=== PATIENT | female | born 1970 | race Caucasian/White ===

== ENCOUNTER 2016-06-02 17:11 | Emergency (ER) | payer OTHER ==
--- NOTE | 2016-06-02 20:17 | UC ---
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---is getting no relief with Tylenol...has had a similar event 3-4 years ago treated with Toradol IM and muscle relaxers - History Of Current Complaint Chief Complaint: UCLowerExtremity Stated Complaint: LEG PAIN Time Seen by Provider: 06/02/16 20:14 Hx Obtained From: Patient Hx Last Menstrual Period: IUD ?: No Mechanism Of Injury: unknown Onset/Duration: Sudden Onset, Lasting Days - 9, Still Present, Worse Since - has not been able to sleep for the past 3 days Timing: Constant Severity Initially: Moderate Severity Currently: Moderate Pain Intensity: 9 Pain Scale Used: 0-10 Numeric Location: Discrete At: - LS spine to right SI Joint down buttock to back of knee Character Of Pain: Aching, Throbbing Aggravating Factor(s): Movement Alleviating Factor(s): Nothing Associated Signs And Symptoms: Positive: Negative Related History: Similar Episode/Dx As - sciatica 3-4 years ago - Allergies/Home Medications Allergies/Adverse Reactions: Allergies Allergy/AdvReac Type Severity Reaction Status Date / Time Azithromycin [From Zithromax] Allergy Severe SEVERE Verified 06/02/16 19:56 ANAPHYLAXIS Latex Allergy ITCHY RASH Verified 06/02/16 19:56 PMH/Surg Hx/FS Hx/Imm Hx Previously Healthy: No Endocrine History Of: Reports: Diabetes - BORDERLINE - NO MEDS Denies: Thyroid Disease Cardiovascular History Of: Denies: Cardiac Disorders, Hypertension, Pacemaker/ICD Respiratory History Of: Reports: Asthma - borderline Denies: COPD GI/ History Of: Reports: Kidney Stones - X 2 LAST ONE 2011 - SHE PASSED Denies: Ulcer Neurological History Of: Reports: Migraine Psychological History Of: Reports: Anxiety - CLAUSTAPHOBIC, Depression Cancer History Of: Denies: Breast Cancer - Surgical History Surgical History: Yes Surgery Procedure, Year, and Place: REPAIR FX LEFT FOOT AUGUST 2012 right knee surgery. 1997 BILATERAL TUBAL LIGATION, [facility] [place]. WISDOM TEETH EXTRACTION, [facility]. 1994 PLACENTA EXTRACTION AFTER CHILDBIRTH, hernia repair[facility]. 2010 HIATAL HERNIA REPAIR, [facility] [place]. 2003 OR 2004 LEFT HEEL SPUR, [facility] [place]. 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 Lives: With Family Alcohol Use: None Substance Use Type: None Smoking Status (MU): Never Smoked Tobacco - Immunization History Most Recent Influenza Vaccination: Fall 2015 Review of Systems Constitutional: Negative Skin: Negative Eyes: Negative ENT: Negative Respiratory: Negative Cardiovascular: Negative Gastrointestinal: Negative Genitourinary: Negative Motor: Negative Neurovascular: Negative Musculoskeletal: Arthralgia - right sciatic and si joint Neurological: Negative Psychological: Negative All Other Systems Reviewed And Are Negative: Yes Physical Exam Triage Information Reviewed: Yes Appearance: Well-Appearing, Pain Distress, Obese Vital Signs: Initial Vital Signs Temp 97 F 06/02/16 19:58 Pulse 80 06/02/16 19:58 Resp 18 06/02/16 19:58 BP 141/85 06/02/16 19:58 Pulse Ox 100 06/02/16 19:58 Vital Signs Reviewed: Yes Eye Exam: Normal Eyes: Positive: Conjunctiva Clear ENT Exam: Normal ENT: Positive: Normal ENT inspection, Hearing grossly normal. Negative: Nasal congestion, Nasal drainage, Trismus, Muffled/hoarse voice Neck exam: Normal Neck: Positive: Supple, Nontender, No Lymphadenopathy Respiratory Exam: Normal Respiratory: Positive: Chest non-tender, Lungs clear, Normal breath sounds, No respiratory distress, No accessory muscle use Cardiovascular Exam: Normal Cardiovascular: Positive: RRR, No Murmur, Pulses Normal, Brisk Capillary Refill Musculoskeletal Exam: Normal Musculoskeletal: Positive: Strength Intact, ROM Intact, No Edema Neurological Exam: Normal Neurological: Positive: Alert, Muscle Tone Normal, Fatigued Psychological Exam: Normal Skin Exam: Normal Re-Evaluation - Re-Evaluation First Eval Change: Improved Hip Injury Course/Dx - Course Course Of Treatment: rest muscle relaxer, low back exercise, follow BP with PCP in the next 1-2 week - Differential Dx/Diagnosis Differential Diagnosis/HQI/PQRI: Sprain, Strain Provider Diagnoses: right sciatic pain Discharge - Discharge Plan Condition: Stable Disposition: HOME Prescriptions: Cyclobenzaprine TAB* [Flexeril TAB*] 10 mg PO TID PRN #15 tab PRN Reason: muscle spasm Patient Education Materials: Sciatica (ED), Acute Low Back Pain (ED), DASH Eating Plan (ED), Hypertension (ED), Lower Back Exercises (ED) Referrals: [facility] PHYSICIAN REFERRAL [Outside] - 1 Week No Primary Care Phys,NOPCP [Primary Care Provider] -
[2016-06-02] MEDS ORDERED: Ketorolac INJ* 60 MG/2 ML VIAL IM ONE (20:24)
[2016-06-02] MEDS ORDERED: Cyclobenzaprine TAB* 10 MG PO ONE (20:56)
[2016-06-02 21:12] VITALS: BP 178/84
== END 2016-06-02 21:07 | disposition home or self-care (01) ==
LOC: UCEAST 17:11
DX: M54.41 Lumbago with sciatica, right side (principal); Z88.1 Allergy status to other antibiotic agents; E66.9 Obesity, unspecified
CPT/HCPCS: 96372; 99212; A9270-GY; G0463; J1885

== ENCOUNTER 2016-09-29 09:21 | Emergency (ER) | payer OTHER ==
[2016-09-29 09:42] VITALS: BP 120/69
--- NOTE | 2016-09-29 10:05 | UC ---
Respiratory Complaint HPI - History of Current Complaint Hx Obtained From: Patient Hx Last Menstrual Period: iud ?: No Onset/Duration: Gradual Onset - has had sinus buffy for 8 days. over past 24h she has experienced dry cough, PND, and green eye drainage, also blowing green nasal drainage, nad today bilat ears very painful Aggravating Factors: Deep Breaths, Recumbent Position Alleviating Factors: Nothing - tried OTC sinus meds w/o relief Associated Signs And Symptoms: Positive: Fever, Nasal Congestion, Sinus Discomfort. Negative: Dizziness <Brooke Reynolds - Last Filed: 09/29/16 10:35> <Bess Hines - Last Filed: 09/29/16 10:57> - History of Current Complaint Chief Complaint: UCRespiratory Stated Complaint: SINUS ISSUE EAR PAIN Time Seen by Provider: 09/29/16 09:45 - Allergies/Home Medications Allergies/Adverse Reactions: Allergies Allergy/AdvReac Type Severity Reaction Status Date / Time Azithromycin [From Zithromax] Allergy Severe SEVERE Verified 06/02/16 19:56 ANAPHYLAXIS Latex Allergy ITCHY RASH Verified 06/02/16 19:56 PMH/Surg Hx/FS Hx/Imm Hx Previously Healthy: Yes - Surgical History Surgical History: Yes Surgery Procedure, Year, and Place: REPAIR FX LEFT FOOT AUGUST 2012 right knee surgery. 1997 BILATERAL TUBAL LIGATION, [facility] [place]. WISDOM TEETH EXTRACTION, [facility]. 1994 PLACENTA EXTRACTION AFTER CHILDBIRTH[facility] [place] 2010 HIATAL HERNIA REPAIR, [facility] [place]. 2003 OR 2004 LEFT HEEL SPUR, [facility] [place]. 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 Lives: With Family Alcohol Use: None Substance Use Type: None Smoking Status (MU): Never Smoked Tobacco - Immunization History Most Recent Influenza Vaccination: Fall 2015 <Brooke Reynolds - Last Filed: 09/29/16 10:35> Review of Systems Constitutional: Chills, Fatigue Skin: Negative Eyes: Other - green d/c ENT: Ear Ache, Sinus Congestion, Sinus Pain/Tenderness Respiratory: Negative, Cough - slight dry Cardiovascular: Negative Musculoskeletal: Negative Neurological: Negative Psychological: Negative All Other Systems Reviewed And Are Negative: Yes <Brooke Reynolds - Last Filed: 09/29/16 10:35> Physical Exam Triage Information Reviewed: Yes Appearance: Well-Appearing, No Pain Distress, Obese Vital Signs: Initial Vital Signs Temp 98.1 F 09/29/16 09:38 Pulse 63 09/29/16 09:38 Resp 16 09/29/16 09:38 BP 120/69 09/29/16 09:38 Pulse Ox 100 09/29/16 09:38 Vital Signs Reviewed: Yes Eyes: Positive: Conjunctiva Inflamed. Negative: Discharge ENT: Positive: Hearing grossly normal, TM dull Dental: Negative: Percussion Tenderness @ Neck: Positive: Supple, Nontender, No Lymphadenopathy Respiratory Exam: Normal Respiratory: Positive: Lungs clear Cardiovascular Exam: Normal Neurological Exam: Normal Psychological Exam: Normal Skin Exam: Normal <Brooke Reynolds - Last Filed: 09/29/16 10:35> Vital Signs: Initial Vital Signs Temp 98.1 F 09/29/16 09:38 Pulse 63 09/29/16 09:38 Resp 16 09/29/16 09:38 BP 120/69 09/29/16 09:38 Pulse Ox 100 09/29/16 09:38 <Bess Hines - Last Filed: 09/29/16 10:57> UC Diagnostic Evaluation - Laboratory O2 Sat by Pulse Oximetry: 100 <Brooke Reynolds - Last Filed: 09/29/16 10:35> Respiratory Course/Dx - Differential Dx/Diagnosis Differential Diagnosis/HQI/PQRI: Lower Resp Infection, Sinusitis, Other - URI Provider Diagnoses: sinusitis <Brooke Reynolds - Last Filed: 09/29/16 10:35> Discharge <Brooke Reynolds - Last Filed: 09/29/16 10:35> <Bess Hines - Last Filed: 09/29/16 10:57> - Discharge Plan Condition: Stable Disposition: HOME Prescriptions: Amoxicillin/Clavulanate TAB* [Augmentin TAB 875*] 875 mg PO BID #20 tab Patient Education Materials: Sinusitis (ED) Referrals: No Primary Care Phys,NOPCP [Primary Care Provider] - Additional Instructions: drink plenty of fluids take antibiotic as prescribed use tylenol over the counter as directed for fever and pain return if symptoms worsen at any time Attestation Statement User Type: Provider - I was available for consult. This patient was seen by the SOL. The patient was not presented to, seen by, or examined by me. -Sabrina <Bess Hines - Last Filed: 09/29/16 10:57>
== END 2016-09-29 10:07 | disposition home or self-care (01) ==
LOC: UCEAST 09:21
DX: J32.9 Chronic sinusitis, unspecified (principal); Z88.1 Allergy status to other antibiotic agents; Z91.040 Latex allergy status; E66.9 Obesity, unspecified
CPT/HCPCS: 99212; G0463

== ENCOUNTER 2016-10-12 19:32 | Emergency (ER) | payer OTHER ==
[2016-10-12] MEDS ORDERED: HYDROmorphone* 1 MG/ML 1 ML SYR IV ONE (20:46)
[2016-10-12] MEDS ORDERED: Ondansetron INJ* 2 MG/ML VIAL IV ONE (20:46)
[2016-10-12] MEDS ORDERED: NS 0.9% 1000 ML* 1,000 ML IV ONE (20:46)
[2016-10-12 21:26] LABS: Hematocrit 41 % (35-47); Hemoglobin 13.5 g/dl (12.0-16.0); Mean Corpuscular HGB Conc 33 g/dl (31-36); Mean Corpuscular Hemoglobin 29 pg (27-31); Mean Corpuscular Volume 89 fL (80-97); Mean Platelet Volume 9 um3 (7.4-10.4); Red Blood Count 4.66 10^6/ul (4.0-5.4); Red Cell Distribution Width 14 % (10.5-15); White Blood Count 11.2 10^3/ul (3.5-10.8)
--- NOTE | 2016-10-12 21:39 | RAD ---
Indication: Right lower quadrant pain. CT of the abdomen and pelvis was performed without oral or IV contrast administration. Coronal and sagittal reconstructed images were obtained. The lung bases demonstrate no pleural fluid, nodules or masses. Heart is of normal size without evidence of pericardial effusion. The liver is normal in size. No focal lesions or intrahepatic ductal dilatation is noted. The common duct is not dilated. The gallbladder demonstrates multiple calcified gallstones without pericholecystic fluid or wall thickening. Pancreas demonstrates no mass or pancreatic ductal dilatation. Spleen is normal in size. No adrenal masses are noted. The kidneys demonstrate no hydronephrosis in either kidney although calculi are noted in both kidneys. These are nonobstructive and measures up to 4 mm in the lower pole collecting system of the right kidney and lower and upper pole pole collecting system of the left kidney. No retroperitoneal lymphadenopathy is noted. Aorta and inferior vena cava are unremarkable. No dilated loops of bowel are noted. The uterus demonstrates intrauterine device in place. No adnexal masses are noted. Beginning bladder is unremarkable. No hernias are noted. The colon is filled with stool. No hernias are noted. IMPRESSION: NO EVIDENCE OF OBSTRUCTIVE UROPATHY IS NOTED. NONOBSTRUCTING CALCULI IS NOTED IN BOTH KIDNEYS. CHOLELITHIASIS WITHOUT EVIDENCE OF BILIARY DUCT DILATATION.
[2016-10-12 21:41] LABS: ALT 27 U/L (7-52); AST 19 U/L (13-39); Albumin 4.1 g/dL (3.2-5.2); Alkaline Phosphatase 56 U/L (34-104); Anion Gap 6 mmol/L (2-11); BUN/Creatinine Ratio 18.6 (8-20); Blood Urea Nitrogen 13 mg/dL (6-24); C Reactive Protein 9.77 mg/L (< 5.00); CO2 Carbon Dioxide 25 mmol/L (22-32); Calcium 9.7 mg/dL (8.6-10.3); Chloride 103 mmol/L (101-111); EGFR African American 115.9 (>60); EGFR Non-African American 90.1 (>60); Globulin 3.3 g/dL (2-4); Glucose 88 mg/dL (70-100); Lipase 43 U/L (11.0-82.0); Potassium 3.9 mmol/L (3.5-5.0); Sodium 134 mmol/L (133-145); Total Protein 7.4 g/dL (6.4-8.9)
[2016-10-12 22:32] LABS: Urine Bilirubin Negative (Negative); Urine Glucose Negative (Negative); Urine Nitrite Negative (Negative)
[2016-10-12] MEDS ORDERED: oxyCODONE/Acetamin 5/325 MG* TAB PO ONE (22:43)
[2016-10-12 23:39] VITALS: BP 122/62
--- NOTE | 2016-10-31 16:48 | ED ---
Helen Grimaldo Salem, scribed for Wilmar Trevino MD on 10/12/16 at 2107 . Abdominal Pain/Female - HPI Summary HPI Summary: Patient is a 46 y/o F who presents to the ED with RLQ abd pain since 0400 this morning. She states that pain was so bad she woke up crying. Pt describes the pain as pinching every 20-30minutes. She reports nausea and dry heaves since onset, but denies changes in BM or diarrhea. She states pain is aggravated with sitting still. Pt has a IUD, but suspects LMP was 10 days ago. - History of Current Complaint Chief Complaint: EDAbdPain Stated Complaint: RIGHT ABD PAIN Time Seen by Provider: 10/12/16 20:32 Hx Obtained From: Patient Hx Last Menstrual Period: iud Onset/Duration: Gradual Onset, Lasting Hours, Still Present Timing: Intermittent Episode Lasting Severity Initially: Moderate Severity Currently: Moderate Pain Intensity: 9 Pain Scale Used: 0-10 Numeric Location: Discrete At: RLQ Radiates: No Character: Other: - "pinching" Aggravating Factor(s): Other: - Sitting still. Alleviating Factor(s): Other: - Movement. Associated Signs and Symptoms: Positive: Nausea. Negative: Diarrhea Allergies/Adverse Reactions: Allergies Allergy/AdvReac Type Severity Reaction Status Date / Time Azithromycin [From Zithromax] Allergy Severe SEVERE Verified 06/02/16 19:56 ANAPHYLAXIS Latex Allergy ITCHY RASH Verified 06/02/16 19:56 PMH/Surg Hx/FS Hx/Imm Hx Endocrine/Hematology History: Reports: Hx Diabetes - BORDERLINE - NO MEDS, Hx Anemia - HX OF FOR LAST 4 YEARS BETTER SINCE IUD INSERTION Denies: Hx Thyroid Disease Cardiovascular History: Denies: Hx Hypertension, Hx Pacemaker/ICD Respiratory History: Reports: Hx Asthma - borderline Denies: Hx Chronic Obstructive Pulmonary Disease (COPD) GI History: Reports: Hx Hiatal Hernia Denies: Hx Ulcer History: Reports: Hx Kidney Stones - X 2 LAST ONE 2011 - SHE PASSED Musculoskeletal History: Reports: Hx Arthritis, Other Musculoskeletal History - BEING TESTED FOR RA - LEVELS 30 Sensory History: Reports: Hx Contacts or Glasses - GLASSES Opthamlomology History: Reports: Hx Contacts or Glasses - GLASSES Neurological History: Reports: Hx Migraine Psychiatric History: Reports: Hx Anxiety - CLAUSTAPHOBIC, Hx Depression Denies: Hx Panic Disorder - Cancer History Hx Chemotherapy: No Hx Radiation Therapy: No - Surgical History Surgery Procedure, Year, and Place: REPAIR FX LEFT FOOT AUGUST 2012 right knee surgery. 1997 BILATERAL TUBAL LIGATION, [facility] [place]. WISDOM TEETH EXTRACTION, [facility]. 1994 PLACENTA EXTRACTION AFTER [facility]ILDBIRTH[facility] [place] 2010 HIATAL HERNIA REPAIR, [facility] [place]. 2003 OR 2004 LEFT HEEL SPUR, [facility] [place]. 2004 RIGHT KNEE ARTHROSCOPY, [facility] Hx Anesthesia Reactions: No - WOULD PREFER SPINAL ANESTHESIA Infectious Disease History: Denies: Hx Clostridium Difficile, Hx Hepatitis, Hx Human Immunodeficiency Virus (HIV), Hx of Known/Suspected MRSA, Hx Shingles, Hx Tuberculosis, Hx Known/ Suspected VRE, Hx Known/Suspected VRSA, History Other Infectious Disease, Traveled Outside the [place] in Last 30 Days - Family History Known Family History: Negative: Hypertension Family History: denies cardio vascular disease in family lineage - Social History Alcohol Use: None Hx Substance Use: No Substance Use Type: Reports: None Hx Tobacco Use: No Smoking Status (MU): Never Smoked Tobacco Review of Systems Constitutional: Negative Positive: Fever Gastrointestinal: Other - No changes in BM. Positive: Abdominal Pain, Nausea, Other - Dry heaves. . Negative: Diarrhea All Other Systems Reviewed And Are Negative: Yes Physical Exam Triage Information Reviewed: Yes Vital Signs On Initial Exam: Initial Vitals Temp Pulse Resp BP Pulse Ox 97.1 F 89 22 178/68 100 10/12/16 19:33 10/12/16 19:33 10/12/16 19:33 10/12/16 19:33 10/12/16 19:33 Vital Signs Reviewed: Yes Appearance: Positive: Well-Appearing, No Pain Distress Skin: Positive: Warm, Skin Color Reflects Adequate Perfusion, Dry Head/Face: Positive: Normal Head/Face Inspection Eyes: Positive: Normal Neck: Positive: Supple, Nontender Respiratory/Lung Sounds: Positive: Clear to Auscultation, Breath Sounds Present Cardiovascular: Positive: RRR Abdomen Description: Positive: Soft, Other: - Tenderness to RLQ. Bowel Sounds: Positive: Present Musculoskeletal: Positive: Normal Neurological: Positive: Normal Psychiatric: Positive: Normal, Affect/Mood Appropriate Diagnostics - Vital Signs Vital Signs Temp Pulse Resp BP Pulse Ox 10/12/16 19:33 97.1 F 89 22 178/68 100 - Laboratory Lab Results: Lab Results 10/12/16 10/12/16 10/12/16 Range/Units 21:10 21:10 22:17 WBC 11.2 H (3.5-10.8) 10^3/ul RBC 4.66 (4.0-5.4) 10^6/ul Hgb 13.5 (12.0-16.0) g/dl Hct 41 (35-47) % MCV 89 (80-97) fL MCH 29 (27-31) pg MCHC 33 (31-36) g/dl RDW 14 (10.5-15) % Plt Count 287 (150-450) 10^3/ul MPV 9 (7.4-10.4) um3 Neut % (Auto) 72.4 (38-83) % Lymph % (Auto) 18.3 L (25-47) % Gilmer % (Auto) 6.5 (1-9) % Eos % (Auto) 1.9 (0-6) % Baso % (Auto) 0.9 (0-2) % Absolute Neuts (auto) 8.1 H (1.5-7.7) 10^3/ul Absolute Lymphs (auto) 2.1 (1.0-4.8) 10^3/ul Absolute Monos (auto) 0.7 (0-0.8) 10^3/ul Absolute Eos (auto) 0.2 (0-0.6) 10^3/ul Absolute Basos (auto) 0.1 (0-0.2) 10^3/ul Absolute Nucleated RBC 0 10^3/ul Nucleated RBC % 0 Sodium 134 (133-145) mmol/L Potassium 3.9 (3.5-5.0) mmol/L Chloride 103 (101-111) mmol/L Carbon Dioxide 25 (22-32) mmol/L Anion Gap 6 (2-11) mmol/L BUN 13 (6-24) mg/dL Creatinine 0.70 (0.51-0.95) mg/dL Est GFR ( Amer) 115.9 (>60) Est GFR (Non-Af Amer) 90.1 (>60) BUN/Creatinine Ratio 18.6 (8-20) Glucose 88 (70-100) mg/dL Calcium 9.7 (8.6-10.3) mg/dL Total Bilirubin 0.50 (0.2-1.0) mg/dL AST 19 (13-39) U/L ALT 27 (7-52) U/L Alkaline Phosphatase 56 (34-104) U/L C-Reactive Protein 9.77 H (< 5.00) mg/L Total Protein 7.4 (6.4-8.9) g/dL Albumin 4.1 (3.2-5.2) g/dL Globulin 3.3 (2-4) g/dL Albumin/Globulin Ratio 1.2 (1-3) Lipase 43 (11.0-82.0) U/L Beta HCG, Quant < 0.60 mIU/mL Urine Color Straw Urine Appearance Clear Urine pH 6.0 (5-9) Ur Specific Odonnell 1.012 (1.010-1.030) Urine Protein Negative (Negative) Urine Ketones Negative (Negative) Urine Blood Negative (Negative) Urine Nitrate Negative (Negative) Urine Bilirubin Negative (Negative) Urine Urobilinogen Negative (Negative) Ur Leukocyte Esterase Negative (Negative) Urine Glucose Negative (Negative) Result Diagrams: 10/12/16 21:10 10/12/16 21:10 Lab Statement: Any lab studies that have been ordered have been reviewed, and results considered in the medical decision making process. - CT ABD/PELVIS CT Interpretation Completed By: Radiologist - IMPRESSION: NO EVIDENCE OF OBSTRUCTIVE UROPATHY IS NOTED. NONOBSTRUCTING CALCULI IS NOTED IN BOTH KIDNEYS. CHOLELITHIASIS WITHOUT EVIDENCE OF BILIARY DUCT DILATATION. Re-Evaluation - Re-Evaluation First Eval Re-Evaluation Time: 22:40 Comment: Reviewed imaging and lab results. Abdominal Pain Fem Course/Dx - Diagnoses Provider Diagnoses: Abdominal pain Discharge - Discharge Plan Condition: Stable Disposition: HOME Patient Education Materials: Abdominal Pain (ED) Referrals: Yasmeen Dowling MD [Primary Care Provider] - Additional Instructions: Please follow up with your primary care provider. Return to the ED if symptoms do not improve. The documentation as recorded by the Helen alva Salem accurately reflects the service I personally performed and the decisions made by , Wilmar Trevino MD.
== END 2016-10-12 23:47 | disposition home or self-care (01) ==
LOC: ED 19:32
DX: R10.31 Right lower quadrant pain (principal); N20.0 Calculus of kidney; Z87.442 Personal history of urinary calculi; K80.20 Calculus of gallbladder without cholecystitis without obstruction; R11.0 Nausea; Z32.02 Encounter for pregnancy test, result negative; R73.03 Prediabetes; G43.909 Migraine, unspecified, not intractable, without status migrainosus; F41.9 Anxiety disorder, unspecified; F32.9 Major depressive disorder, single episode, unspecified; Z88.1 Allergy status to other antibiotic agents; Z91.040 Latex allergy status
CPT/HCPCS: 36415; 74176; 80053; 81003; 83690; 84702; 85025; 86140; 96361; 96374; 96375; 99283; A9270-GY; J1170; J2405

== ENCOUNTER 2016-12-24 14:58 | Emergency (ER) | payer OTHER ==
[2016-12-24 16:16] VITALS: BP 124/77
--- NOTE | 2016-12-24 16:23 | UC ---
HPI Febrile Illness - HPI Summary HPI Summary: 46 YEAR OLD FEMALE PRESENTS WITH FEVER, CHILLS, NAUSEA AND VOMITING X 1 DAY. - History of Current Complaint Chief Complaint: UCGI Time Seen by Provider: 12/24/16 16:20 Hx Obtained From: Patient Hx Last Menstrual Period: now Onset/Duration: Started Hours Ago Timing: Constant Initial Severity: Moderate Current Severity: Moderate Pain Scale Used: 0-10 Numeric - 5 - Allergy/Home Medications Allergies/Adverse Reactions: Allergies Allergy/AdvReac Type Severity Reaction Status Date / Time Azithromycin [From Zithromax] Allergy Severe SEVERE Verified 12/24/16 16:16 ANAPHYLAXIS Latex Allergy ITCHY RASH Verified 12/24/16 16:16 Home Medications: Home Medications FLUoxetine CAP* [Prozac CAP*] 10 mg PO BEDTIME 12/24/16 [History Confirmed 12/24] PMH/Surg Hx/FS Hx/Imm Hx Previously Healthy: Yes Endocrine/Hematology History: Reports: Hx Diabetes - BORDERLINE - NO MEDS, Hx Anemia - HX OF FOR LAST 4 YEARS BETTER SINCE IUD INSERTION Denies: Hx Thyroid Disease Cardiovascular History: Denies: Hx Hypertension, Hx Pacemaker/ICD Respiratory History: Reports: Hx Asthma - borderline Denies: Hx Chronic Obstructive Pulmonary Disease (COPD) GI History: Reports: Hx Hiatal Hernia Denies: Hx Ulcer History: Reports: Hx Kidney Stones - X 2 LAST ONE 2011 - SHE PASSED Musculoskeletal History: Reports: Hx Arthritis, Other Musculoskeletal History - BEING TESTED FOR RA - LEVELS 30 Sensory History: Reports: Hx Contacts or Glasses - GLASSES Opthamlomology History: Reports: Hx Contacts or Glasses - GLASSES Neurological History: Reports: Hx Migraine Psychiatric History: Reports: Hx Anxiety - CLAUSTAPHOBIC, Hx Depression Denies: Hx Panic Disorder - Cancer History Hx Chemotherapy: No Hx Radiation Therapy: No - Surgical History Surgery Procedure, Year, and Place: REPAIR FX LEFT FOOT AUGUST 2012 right knee surgery. 1997 BILATERAL TUBAL LIGATION, [facility] [place]. WISDOM TEETH EXTRACTION, [facility]. 1994 PLACENTA EXTRACTION AFTER [facility]ILDBIRTH, [facility] [place] 2010 HIATAL HERNIA REPAIR, [facility] [place]. 2003 OR 2004 LEFT HEEL SPUR, [facility] [place]. 2004 RIGHT KNEE ARTHROSCOPY, [facility] [place] Hx Anesthesia Reactions: No - WOULD PREFER SPINAL ANESTHESIA Infectious Disease History: No Infectious Disease History: Denies: Hx Clostridium Difficile, Hx Hepatitis, Hx Human Immunodeficiency Virus (HIV), Hx of Known/Suspected MRSA, Hx Shingles, Hx Tuberculosis, Hx Known/ Suspected VRE, Hx Known/Suspected VRSA, History Other Infectious Disease, Traveled Outside the [place] in Last 30 Days - Family History Known Family History: Positive: None - denies cardio vascular disease in family lineage Negative: Hypertension - Social History Alcohol Use: Rare Substance Use Type: Reports: None Smoking Status (MU): Never Smoked Tobacco Review of Systems Constitutional: Negative Skin: Negative Eyes: Negative ENT: Negative Respiratory: Negative Cardiovascular: Negative Gastrointestinal: Vomiting, Diarrhea, Nausea Genitourinary: Negative Motor: Negative Neurovascular: Negative Musculoskeletal: Negative Neurological: Negative Psychological: Negative All Other Systems Reviewed And Are Negative: Yes Physical Exam Triage Information Reviewed: Yes Vital Signs: Initial Vital Signs Temp 36.6 C 12/24/16 16:11 Pulse 73 12/24/16 16:11 Resp 18 12/24/16 16:11 BP 124/77 12/24/16 16:11 Pulse Ox 97 12/24/16 16:11 Eye Exam: Normal ENT Exam: Normal Dental Exam: Normal Neck exam: Normal Neck: Positive: 1 Respiratory Exam: Normal Cardiovascular Exam: Normal Abdominal Exam: Normal Musculoskeletal Exam: Normal Neurological Exam: Normal Psychological Exam: Normal Skin Exam: Normal Course/Dx - Diagnoses Clinic Provider Diagnoses: nausea. vomitting Discharge - Discharge Plan Condition: Stable Disposition: HOME Prescriptions: Loperamide HCl [Imodium A-D] 2 mg PO TID PRN #1 box PRN Reason: Diarrhea Promethazine SUPP* [Phenergan Supp*] 25 mg [place] Q8H PRN #1 box PRN Reason: Nausea Patient Education Materials: Fever in Adults (ED), Acute Nausea and Vomiting ( ED), Acute Diarrhea (ED) Referrals: Yasmeen Dowling MD [Primary Care Provider] -
== END 2016-12-24 17:01 | disposition home or self-care (01) ==
LOC: UCEAST 14:58
DX: R11.2 Nausea with vomiting, unspecified (principal); R50.9 Fever, unspecified; Z88.1 Allergy status to other antibiotic agents; Z91.040 Latex allergy status; R73.03 Prediabetes; G43.909 Migraine, unspecified, not intractable, without status migrainosus; F41.9 Anxiety disorder, unspecified; F32.9 Major depressive disorder, single episode, unspecified; Z87.442 Personal history of urinary calculi
CPT/HCPCS: 87502; 99212; G0463

== ENCOUNTER 2017-03-12 17:34 | Emergency (ER) | payer OTHER ==
[2017-03-12 18:51] VITALS: BP 135/75
--- NOTE | 2017-03-12 20:24 | UC ---
Throat Pain/Nasal Carlos HPI - HPI Summary HPI Summary: 2.5 WEEKS OF LEFT EAR PAIN, COUGH, SINUS CONGESTION PRESSURE. - History of Current Complaint Hx Obtained From: Patient Hx Last Menstrual Period: IUD Onset/Duration: Gradual Onset, Lasting Weeks Severity: Mild Pain Intensity: 2 Pain Scale Used: 0-10 Numeric Cough: Productive Associated Signs & Symptoms: Positive: Hoarseness, Sinus Discomfort, Nasal Discharge - Epiglottits Risk Factors Epiglottis Risk Factors: Negative <Elder Mabry - Last Filed: 03/12/17 20:21> <Bess Hines - Last Filed: 03/12/17 20:25> - History of Current Complaint Chief Complaint: UCRespiratory Stated Complaint: SINUS COMPLAINT Time Seen by Provider: 03/12/17 18:12 - Allergies/Home Medications Allergies/Adverse Reactions: Allergies Allergy/AdvReac Type Severity Reaction Status Date / Time Azithromycin [From Zithromax] Allergy Severe SEVERE Verified 03/12/17 18:21 ANAPHYLAXIS Latex Allergy ITCHY RASH Verified 03/12/17 18:21 Home Medications: Home Medications Calcium Carbonate-Vitamin D [Calcium 500 + D] 1 tab PO DAILY 03/12/17 [History Confirmed 03/12/17] Pseudoephedrine-Guaifenesin [Mucinex D 60-600 mg] 1 tab PO BID PRN 03/12/17 [ History Confirmed 03/12/17] PMH/Surg Hx/FS Hx/Imm Hx Previously Healthy: Yes - Surgical History Surgical History: Yes Surgery Procedure, Year, and Place: REPAIR FX LEFT FOOT AUGUST 2012 right knee surgery. 1997 BILATERAL TUBAL LIGATION, [facility] [place]. WISDOM TEETH EXTRACTION, [facility]. 1994 PLAC[place] EXTRACTION [facility]DBIR[facility] [place] [place] HIATAL HERNIA REPAIR, [facility] [place]. 2003 OR 2004 LEFT HEEL SPUR, [facility] [place]. 2004 RIGHT KNEE ARTHROSCOPY, [facility] [place] - Family History Known Family History: Positive: None - denies cardio vascular disease in family lineage Negative: Hypertension, Respiratory Disease - Social History Occupation: Employed Full-time Lives: With Family Alcohol Use: Rare Substance Use Type: None Smoking Status (MU): Never Smoked Tobacco - Immunization History Most Recent Influenza Vaccination: Fall 2015 <Elder Mabry - Last Filed: 03/12/17 20:21> Review of Systems Constitutional: Negative Skin: Negative Eyes: Negative ENT: Ear Ache, Nasal Discharge, Sinus Congestion, Sinus Pain/Tenderness Respiratory: Negative Cardiovascular: Negative Gastrointestinal: Negative Genitourinary: Negative Motor: Negative Neurovascular: Negative Musculoskeletal: Negative Neurological: Negative Psychological: Negative Is Patient Immunocompromised?: No All Other Systems Reviewed And Are Negative: Yes <Elder Mabry - Last Filed: 03/12/17 20:21> Physical Exam Triage Information Reviewed: Yes Appearance: No Pain Distress, Well-Nourished, Ill-Appearing - MILDLY Vital Signs: Initial Vital Signs Temp 97.7 F 03/12/17 18:18 Pulse 74 03/12/17 18:18 Resp 16 03/12/17 18:18 BP 156/93 03/12/17 18:18 Pulse Ox 100 03/12/17 18:18 Vital Signs Reviewed: Yes Eye Exam: Normal ENT: Positive: Pharynx normal, Nasal congestion, Nasal drainage, TM bulging, TM dull Dental Exam: Normal Neck exam: Normal Neck: Positive: Supple, Nontender, No Lymphadenopathy Respiratory Exam: Other - COUGH Respiratory: Positive: Chest non-tender, Lungs clear, Normal breath sounds, No respiratory distress, No accessory muscle use Cardiovascular Exam: Normal Cardiovascular: Positive: RRR, No Murmur, Pulses Normal, Brisk Capillary Refill Abdominal Exam: Normal Abdomen Description: Positive: Nontender, No Organomegaly Musculoskeletal Exam: Normal Musculoskeletal: Positive: Strength Intact, ROM Intact Neurological Exam: Normal Psychological Exam: Normal Skin Exam: Normal <Elder Mabry - Last Filed: 03/12/17 20:21> Vital Signs: Initial Vital Signs Temp 97.7 F 03/12/17 18:18 Pulse 74 03/12/17 18:18 Resp 16 03/12/17 18:18 BP 156/93 03/12/17 18:18 Pulse Ox 100 03/12/17 18:18 <Bess Hines - Last Filed: 03/12/17 20:25> Throat Pain/Nasal Course/Dx - Differential Dx/Diagnosis Differential Diagnosis/HQI/PQRI: Pharyngitis, Sinusitis, Tonsillitis, URI Provider Diagnoses: SINUSITIS; BRONCHITIS <Elder Mabry - Last Filed: 03/12/17 20:21> Discharge <Elder Mabry - Last Filed: 03/12/17 20:21> <Bess Hines - Last Filed: 03/12/17 20:25> - Discharge Plan Condition: Stable Disposition: HOME Prescriptions: DOXYcycline CAP(*) [DOXYcycline 100MG CAP(*)] 100 mg PO BID #20 cap Patient Education Materials: Sinusitis (ED), Acute Bronchitis (ED) Referrals: Yasmeen Dowling MD [Primary Care Provider] - Attestation Statement User Type: Provider - I was available for consult. This patient was seen by the [facility]. The patient was not presented to, seen by, or examined by me. -Sabrina <Bess Hines - Last Filed: 03/12/17 20:25>
== END 2017-03-12 18:51 | disposition home or self-care (01) ==
LOC: UCEAST 17:34
DX: J32.9 Chronic sinusitis, unspecified (principal); J40 Bronchitis, not specified as acute or chronic
CPT/HCPCS: 99212; G0463

== ENCOUNTER 2017-03-15 18:26 | Emergency (ER) | payer OTHER ==
[2017-03-15 19:06] VITALS: BP 153/74
--- NOTE | 2017-03-15 19:09 | UC ---
Respiratory Complaint HPI - History of Current Complaint Stated Complaint: URI Time Seen by Provider: 03/15/17 18:42 Hx Last Menstrual Period: IUD - Allergies/Home Medications Allergies/Adverse Reactions: Allergies Allergy/AdvReac Type Severity Reaction Status Date / Time Azithromycin [From Zithromax] Allergy Severe SEVERE Verified 03/15/17 18:57 ANAPHYLAXIS Latex Allergy ITCHY RASH Verified 03/15/17 18:57 PMH/Surg Hx/FS Hx/Imm Hx Previously Healthy: Yes Respiratory History: Asthma Psychological History: Depression - Surgical History Surgical History: Yes Surgery Procedure, Year, and Place: REPAIR FX LEFT FOOT AUGUST 2012 right knee surgery. 1997 BILATERAL [place] [facility] [place] [facility] TEETH EXTRACTION, [facility]. 1994 PLACENTA EXTRACTION AFTER [place]ILDBIRTH[facility] [place] [facility] [place]. 2003 [place] 2004 LEFT HEEL SPUR, [facility] [place]. 2004 RIGHT KNEE AR[place]ROSCOPY, [facility] [place] - Family History Known Family History: Positive: None - denies cardio vascular disease in family lineage Negative: Hypertension, Respiratory Disease - Social History Alcohol Use: Rare Substance Use Type: None Smoking Status (MU): Never Smoked Tobacco - Immunization History Most Recent Influenza Vaccination: Fall 2015 Review of Systems Constitutional: Negative ENT: Ear Ache, Sinus Congestion Respiratory: Shortness Of Breath, Cough All Other Systems Reviewed And Are Negative: Yes Physical Exam Triage Information Reviewed: Yes Appearance: Well-Appearing Vital Signs Reviewed: Yes ENT: Positive: Pharynx normal, Nasal drainage, TMs normal, Sinus tenderness Dental Exam: Normal Neck exam: Normal, Other - tender on left paracervical area/posterior mastoid area. Non tender on mastoid process Neck: Positive: No Lymphadenopathy Respiratory: Positive: Lungs clear Cardiovascular Exam: Normal Respiratory Course/Dx - Course Course Of Treatment: previous history of asthma, persistent cough after URI, possible Reactive airway disease to start inhalers. Correct technique reviewed with patient. Neck sprain to start tizanidine - Differential Dx/Diagnosis Provider Diagnoses: Neck sprain. Reactive Airway Disease Discharge - Discharge Plan Referrals: Yasmeen Dowling MD [Primary Care Provider] -
== END 2017-03-15 19:53 | disposition home or self-care (01) ==
LOC: UCEAST 18:26
DX: S13.9XXA Sprain of joints and ligaments of unspecified parts of neck, initial encounter (principal); J45.909 Unspecified asthma, uncomplicated; X58.XXXA Exposure to other specified factors, initial encounter; Y92.9 Unspecified place or not applicable
CPT/HCPCS: 99212; G0463

== ENCOUNTER 2017-05-25 07:05 | Emergency (ER) | payer OTHER ==
[2017-05-25 07:16] VITALS: BP 134/69
--- NOTE | 2017-05-25 08:37 | UC ---
Allen Grimaldo Nilda, scribed for Cezar López MD on 05/25/17 at 0731 . Throat Pain/Nasal Carlos HPI - HPI Summary HPI Summary: This patient is a 46 year old F presenting to [facility] with a chief complaint of constant sinusitis-like symptoms for the past 4 days. The patient rates the pain 7/10 in severity. Symptoms aggravated and alleviated by nothing. Patient reports sinus pressure, cough, rhinorrhea (green), ear pressure, sore throat, and post nasal drip. Patient denies fever and body aches. PMHx includes asthma. - History of Current Complaint Chief Complaint: UCRespiratory Stated Complaint: SINUS ISSUE SORE THROAT Time Seen by Provider: 05/25/17 07:10 Hx Obtained From: Patient Hx Last Menstrual Period: pt has an IUD and states not getting a menses Onset/Duration: Sudden Onset, Lasting Days, Still Present Severity: Severe Pain Intensity: 7 Pain Scale Used: 0-10 Numeric Cough: Nonproductive Associated Signs & Symptoms: Positive: Other - sinus pressure, cough, rhinorrhea (green), ear pressure, sore throat, and post nasal drip. Patient denies fever, body aches, - Allergies/Home Medications Allergies/Adverse Reactions: Allergies Allergy/AdvReac Type Severity Reaction Status Date / Time MS Azithromycin Allergy Severe SEVERE Verified 05/25/17 07:16 [From Zithromax] ANAPHYLAXIS MS Latex [Latex] Allergy ITCHY RASH Verified 05/25/17 07:16 PMH/Surg Hx/FS Hx/Imm Hx Endocrine History: Diabetes - borderline Respiratory History: Asthma - Surgical History Surgical History: Yes Surgery Procedure, Year, and Place: REPAIR FX LEFT FOOT AUGUST 2012 right knee surgery. 1997 BILATERAL [place] [facility] [place] WISDOM TEETH EXTRACTION, [facility]. 1994 PLACENTA EXTRACTION AFTER [place]ILDBIRTH[facility] [place] [place] HIATAL [place]IA [place]PA[place], [facility] [place]. 2003 [place] 2004 LEFT HEEL SPUR, [facility] [place]. 2004 RIGHT KNEE ARTHROSCOPY, [facility] [place] - Family History Known Family History: Positive: None - denies cardio vascular disease in family lineage Negative: Hypertension, Respiratory Disease - Social History Alcohol Use: Rare Substance Use Type: None Smoking Status (MU): Never Smoked Tobacco - Immunization History Most Recent Influenza Vaccination: Fall 2015 Review of Systems Constitutional: Other - negative fever ENT: Sore Throat, Ear Ache, Nasal Discharge, Sinus Congestion, Sinus Pain/ Tenderness, Other - post nasal drip Respiratory: Cough Musculoskeletal: Other: - negative body aches All Other Systems Reviewed And Are Negative: Yes Physical Exam Triage Information Reviewed: Yes Vital Signs: Initial Vital Signs Temp 97.4 F 05/25/17 07:12 Pulse 81 05/25/17 07:12 Resp 16 05/25/17 07:12 BP 134/69 05/25/17 07:12 Pulse Ox 99 05/25/17 07:12 Vital Signs Reviewed: Yes - Additional Comments VITAL SIGNS: Reviewed. GENERAL: Patient is a well developed and nourished F who is lying comfortable in the stretcher. Patient is not in any acute respiratory distress. HEAD AND FACE: Normocephalic EYES: PERRLA, EOMI x 2. EARS: Hearing grossly intact. MOUTH: Pharyngeal erythema, Nasal mucosa with erythema and green discharge, Tenderness in left maxillary and ethmoid sinuses NECK: Supple, trachea is midline, no adenopathy, no JVD, no carotid bruit. CHEST: Symmetric, no tenderness at palpation LUNGS: Clear to auscultation bilaterally. No wheezing or crackles. CVS: Regular rate and rhythm, S1 and S2 present, no murmurs or gallops appreciated. ABDOMEN: Soft, non-tender. Bowel sounds are normal. No abdominal abnormal pulsations. EXTREMITIES: Full ROM in all major joints, no edema, no cyanosis or clubbing. NEURO: Alert and oriented x 3. No acute neurological deficits. Speech is normal and follows commands. SKIN: Dry and warm Throat Pain/Nasal Course/Dx - Course Assessment/Plan: This patient is a 46 year old F presenting to [facility] with a chief complaint of constant sinusitis-like symptoms for the past 4 days. The patient rates the pain 7/10 in severity. Symptoms aggravated and alleviated by nothing. Patient reports sinus pressure, cough, rhinorrhea (green), ear pressure , sore throat, and post nasal drip. Patient denies fever and body aches. PMHx includes asthma. Influenza A and B negative. Medications given. The patient is hemodynamically stable, alert and oriented x3. Dx acute sinusitis. I discussed all the findings and test results with the patient. Pt was instructed to return to the urgent care or go to ER immediately if any of the symptoms return or worsens. Plan of care was discussed with the patient and pt understands and agrees. All questions were answered to patient satisfaction. There were no further complaints or concerns. - Differential Dx/Diagnosis Differential Diagnosis/HQI/PQRI: Otitis Media, Pharyngitis, Sinusitis, Tonsillitis, URI Provider Diagnoses: acute sinusitis Discharge - Discharge Plan Condition: Stable Disposition: HOME Prescriptions: Amoxicillin PO (*) [Amoxicillin 875 MG (*)] 875 mg PO BID #20 tab Patient Education Materials: Sinusitis (ED) Referrals: Yasmeen Dowling MD [Primary Care Provider] - Additional Instructions: Take medications as instructed Increase your fluid intake Return to the UC if symptoms worsen The documentation as recorded by the Allen alva Nilda accurately reflects the service I personally performed and the decisions made by , Cezar López MD.
== END 2017-05-25 07:55 | disposition home or self-care (01) ==
LOC: UCEAST 07:05
DX: J01.90 Acute sinusitis, unspecified (principal)
CPT/HCPCS: 87502; 99212; G0463

== ENCOUNTER 2017-08-17 17:37 | Emergency (ER) | payer OTHER ==
[2017-08-17 17:46] VITALS: BP 139/66
--- NOTE | 2017-08-17 18:23 | ED ---
HPI Chest Pain - HPI Summary HPI Summary: 47 y/o female here c/o getting a "GI bug" for one week, with vomiting and abdominal cramping. Nauseated, vomited once today after eating. Chest heaviness, headache, exhaustion for one day. Today right arm numbness. Seen by Dr. Blanco 08/10/17 and blood work was ordered. She report Hx of dyslipidemia, and anemia. She has no hx of CO or family hx of CO. - History of Current Complaint Chief Complaint: UCGI Time Seen by Provider: 08/17/17 18:18 Hx Obtained From: Patient Hx Last Menstrual Period: IUD Timing: Intermittent Initial Severity: Mild Current Severity: Mild Pain Intensity: 4 Chest Pain Location: Mid Sternal Chest Pain Radiates: No Chest Pain Radiates To:: Epigastric Character: Heaviness Aggravating Factor(s): Nothing Alleviating Factor(s): Nothing Associated Signs and Symptoms: Positive: Dizziness - Risk Factors Pulmonary Embolism Risk Factors: Negative TAD Risk Factors: Negative - Allergy/Home Medications Allergies/Adverse Reactions: Allergies Allergy/AdvReac Type Severity Reaction Status Date / Time azithromycin Allergy anaph Verified 08/17/17 18:31 [From Zithromax Z-Rigo] latex Allergy Rash Verified 08/17/17 18:31 PMH/Surg Hx/FS Hx/Imm Hx Endocrine/Hematology History: Reports: Hx Diabetes, Hx Anemia - HX OF FOR LAST 4 YEARS BETTER SINCE IUD INSERTION Denies: Hx Thyroid Disease Cardiovascular History: Denies: Hx Hypertension, Hx Pacemaker/ICD Respiratory History: Reports: Hx Asthma Denies: Hx Chronic Obstructive Pulmonary Disease (COPD) GI History: Reports: Hx Hiatal Hernia Denies: Hx Ulcer History: Reports: Hx Kidney Stones - X 2 LAST ONE 2011 - SHE PASSED Musculoskeletal History: Reports: Hx Arthritis, Other Musculoskeletal History - BEING TESTED FOR RA - LEVELS 30 Sensory History: Reports: Hx Contacts or Glasses - GLASSES Opthamlomology History: Reports: Hx Contacts or Glasses - GLASSES Neurological History: Reports: Hx Migraine Psychiatric History: Reports: Hx Anxiety - CLAUSTAPHOBIC, Hx Depression Denies: Hx Panic Disorder - Cancer History Hx Chemotherapy: No Hx Radiation Therapy: No - Surgical History Surgery Procedure, Year, and Place: REPAIR FX LEFT FOOT AUGUST 2012 right knee surgery. 1997 BILATERAL TUBAL LIGATION, [facility]. WISDOM TEETH EXTRACTION, [facility]. 1994 [place]ENTA EXTRACTION [facility] HI[facility]AL [facility]ERNIA REPAIR, [facility] [place]. 2004 OR 2004 LEFT HEEL SPUR, [facility] [place]. 2005 RIGHT KNEE ARTHROSCOPY, [facility] Hx Anesthesia Reactions: No - WOULD PREFER SPINAL ANESTHESIA Infectious Disease History: No Infectious Disease History: Denies: Hx Clostridium Difficile, Hx Hepatitis, Hx Human Immunodeficiency Virus (HIV), Hx of Known/Suspected MRSA, Hx Shingles, Hx Tuberculosis, Hx Known/ Suspected VRE, Hx Known/Suspected VRSA, History Other Infectious Disease, Traveled Outside the [place] in Last 30 Days - Family History Known Family History: Positive: None - denies cardio vascular disease in family lineage Negative: Hypertension, Respiratory Disease - Social History Alcohol Use: Rare Substance Use Type: Reports: None Smoking Status (MU): Never Smoked Tobacco Review of Systems Constitutional: Negative Eyes: Negative ENT: Negative Positive: Chest Pain Respiratory: Negative Positive: Vomiting, Nausea Genitourinary: Negative Musculoskeletal: Negative Skin: Negative Positive: Numbness - right arm All Other Systems Reviewed And Are Negative: Yes Physical Exam - Summary Physical Exam Summary: VITAL SIGNS: Reviewed. GENERAL: Patient is a well developed and nourished who is sitting comfortable in the stretcher. Patient is not in any acute respiratory distress. HEAD AND FACE: Normacephalic and atraumatic. EYES: PERRLA, EOMI x 2, EARS: Hearing grossly intact. MOUTH: Oropharynx within normal limits. NECK: Supple, trachea is midline, no adenopathy, no JVD, no carotid bruit, no c- spine tenderness, neck with full ROM. CHEST: Symmetric, no tenderness at palpation LUNGS: CTA B/L. No wheezing or crackles. CVS: RRR, S1 and S2 present, no murmurs or gallops appreciated. ABDOMEN: Soft, NT, No distention. Normal BS. EXTREMITIES: FROM in all major joints, no edema, no cyanosis or clubbing. NEURO: Alert and oriented x 3. No acute neurological deficits. Speech is normal and follows commands. SKIN: Dry and warm Triage Information Reviewed: Yes Vital Signs On Initial Exam: Initial Vitals Temp Pulse Resp BP Pulse Ox 99.0 F 75 12 139/66 100 08/17/17 17:42 08/17/17 17:42 08/17/17 17:42 08/17/17 17:42 08/17/17 17:42 Vital Signs Reviewed: Yes Diagnostics - Vital Signs Vital Signs Temp Pulse Resp BP Pulse Ox 08/17/17 17:42 99.0 F 75 12 139/66 100 - Laboratory Lab Statement: Any lab studies that have been ordered have been reviewed, and results considered in the medical decision making process. - Additional Comments Diagnostic Additional Comments: EKG: NSR at 68 BPM. No STEMI, Normal axis. Chest Pain Course/Dx - Course Assessment/Plan: Pateint with chest pressure associated with nause and right arm numbness. She has hx of DM and dyslipidemia. EKG shows no STEMI. However because of the symptm she was advised to go to the ED for further assessment. She declined ambulance. She wants to drive herself to the ED. She understands the risk of driving herself to the ED and refused ambulance ride. SHe agrees. - Chest Pain Differential Diagnosis/HQI/PQRI: Acute CO, ACS, Angina, Lower Respiratory Infection - Diagnoses Provider Diagnoses: Chest pain, Nausea and vomiting, Arm numbness Discharge - Sign-Out/Discharge Documenting (check all that apply): Discharge/Admit/Transfer - Discharge Plan Condition: Stable Disposition: HOME Patient Education Materials: Chest Pain (ED), Acute Nausea and Vomiting (ED), Paresthesia (ED) Referrals: Yasmeen Dowling MD [Primary Care Provider] - Additional Instructions: Patient will be discharged to the ED for further assessment. Patient declined ambulance - Billing Disposition and Condition Condition: STABLE Disposition: HOME
[2017-08-17] MEDS ORDERED: Aspirin 81 mg CHEW TAB* 81 MG TAB.CHEW PO ONE (18:36)
== END 2017-08-17 18:43 | disposition home or self-care (01) ==
LOC: UCEAST 17:37
DX: R07.89 Other chest pain (principal); R11.2 Nausea with vomiting, unspecified; R20.0 Anesthesia of skin; R10.13 Epigastric pain; R42 Dizziness and giddiness; Z97.5 Presence of (intrauterine) contraceptive device; E11.9 Type 2 diabetes mellitus without complications; E78.5 Hyperlipidemia, unspecified; D64.9 Anemia, unspecified; J45.909 Unspecified asthma, uncomplicated; K44.9 Diaphragmatic hernia without obstruction or gangrene; Z87.442 Personal history of urinary calculi; G43.909 Migraine, unspecified, not intractable, without status migrainosus; F41.9 Anxiety disorder, unspecified; F40.240 Claustrophobia; F32.9 Major depressive disorder, single episode, unspecified; Z88.1 Allergy status to other antibiotic agents; Z91.040 Latex allergy status
CPT/HCPCS: 93005; 99211; A9270-GY; G0463

== ENCOUNTER 2017-08-17 19:03 | Emergency (ER) | payer OTHER ==
[2017-08-17] MEDS ORDERED: Pantoprazole IV* 40 MG IV ONE (20:02)
[2017-08-17] MEDS ORDERED: Ondansetron ODT TAB* 4 MG ONE (20:02)
[2017-08-17] MEDS ORDERED: Metoclopramide IV* 5 MG/ML 2 ML VIAL IV ONE (20:02)
[2017-08-17] MEDS ORDERED: NS 0.9% 1000 ML* 1,000 ML IV ONE (20:02)
[2017-08-17] MEDS ORDERED: Al Hydrox/Mg Hydrox/Simet LIQ* 30 ML UDC PO ONE (20:03)
[2017-08-17] MEDS ORDERED: Lidocaine 2% VISCOUS* 15 ML UDC PO ONE (20:03)
[2017-08-17 20:24] LABS: ABS Basophils 0 10^3/ul (0-0.2); ABS Eosinophils 0.1 10^3/ul (0-0.6); ABS Lymphocytes 2.3 10^3/ul (1.0-4.8); ABS Monocytes 0.7 10^3/ul (0-0.8); ABS Neutrophils 4.4 10^3/ul (1.5-7.7); ABS Nucleated RBC 0 10^3/ul; Eosinophil % 1.6 % (0-6); Hematocrit 38 % (35-47); Lymphocyte % 30.6 % (25-47); Mean Corpuscular HGB Conc 34 g/dl (31-36); Mean Corpuscular Hemoglobin 29 pg (27-31); Mean Corpuscular Volume 85 fL (80-97); Mean Platelet Volume 8.3 um3 (7.4-10.4); Nucleated Red Blood Cells % 0; Platelet Count 265 10^3/ul (150-450); Red Blood Count 4.48 10^6/ul (4.0-5.4); Red Cell Distribution Width 13 % (10.5-15); White Blood Count 7.5 10^3/ul (3.5-10.8)
[2017-08-17 20:33] LABS: INR 1.05 (0.77-1.02)
[2017-08-17 20:35] LABS: EGFR Non-African American 89.7 (>60)
--- NOTE | 2017-08-17 20:46 | RAD ---
Indication: Chest pain. 2 views of the chest including dual energy PA views demonstrate no mediastinal shift. Heart is of normal size and configuration. Lung reina appear clear. When compared to previous exam of July 11, 2015 no significant change is noted. IMPRESSION: NO ACTIVE CARDIOPULMONARY DISEASE IS NOTED.
[2017-08-17] MEDS ORDERED: Iohexol 300* (CONTRAST) 10 ML SDV IV ONE (21:05)
[2017-08-17] MEDS ORDERED: Nitroglycerin TAB 0.4 MG* 0.4 MG TAB SL ONE (21:44)
--- NOTE | 2017-08-17 22:04 | RAD ---
Indication: Abdominal pain Contrast: Administered 147.3 ml of Contrast -- mg/ml CT of the abdomen and pelvis was performed after oral and IV contrast administration. Coronal and sagittal reconstructed images were obtained. Comparison is made with previous exam dated October 12, 2016. Lung bases demonstrate no pleural fluid, nodules or masses. Heart is of normal size without evidence of pericardial effusion. The liver is normal in size. There are no focal lesions or intrahepatic ductal dilatation noted. The gallbladder is partially contracted. Multiple gallstones are noted. No pericholecystic fluid or wall thickening is identified. The common duct is not dilated. The pancreas demonstrates no mass or pancreatic duct dilatation. The spleen is normal in size. No adrenal masses are noted. The kidneys demonstrate symmetric nephrograms without focal lesions. No retroperitoneal adenopathy is noted. No dilated loops of bowel are noted. At the root of the mesentery there appears to be multiple enlarged lymph nodes scattered along the branches of the superior mesenteric vein and artery. These lymph nodes measure up to 7 mm in short axis and likely represents mesenteric adenitis. The colon is filled with stool. No hernias are noted. No free fluid is identified. The uterus demonstrates IUD in place. Urinary bladder is otherwise unremarkable. No drainable fluid collections are noted. There are no definite adnexal masses are noted. IMPRESSION: Multiple lymph nodes are noted in the mesentery suggestive of mesenteric adenitis. No drainable fluid collections are noted. IUD is in place. Cholelithiasis without definite biliary duct dilatation.
[2017-08-17 22:33] VITALS: BP 101/61
--- NOTE | 2017-08-18 01:13 | ED ---
Jean Grimaldo Jennifer, scribed for Sirena Salter MD on 08/17/17 at 1959 . Complex/Multi-Sys Presentation - HPI Summary HPI Summary: The patient is a 47 year old female coming from [facility] complaining of vomiting and heart burn since 2-3 days ago. The patient reports she additionally complains of abdominal pain, right arm numbness, migraine, and diarrhea. She reports that lying flat and bending forward worsen the pain. The patient denies shortness of breath and bloody stool. 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 - History Of Current Complaint Chief Complaint: EDChestPainROMI Time Seen by Provider: 08/17/17 19:39 Hx Obtained From: Patient Onset/Duration: Sudden Onset, Lasting Days - 2-3 days, Still Present, Worse Since Timing: Constant Severity Currently: Moderate Severity Initially: Moderate Character: Migraine Aggravating Factor(s): Lying flat, bending forward Alleviating Factor(s): Lying propped up Associated Signs And Symptoms: Positive: Other - vomiting, heart burn, abdominal pain, right arm numbness, migraine, diarrhea. NEGATIVE: shortness of breath, bloody stool - Allergies/Home Medications Allergies/Adverse Reactions: Allergies Allergy/AdvReac Type Severity Reaction Status Date / Time azithromycin Allergy anaph Verified 08/17/17 19:11 [From Zithromax Z-Rigo] latex Allergy Rash Verified 08/17/17 19:11 PMH/Surg Hx/FS Hx/Imm Hx Endocrine/Hematology History: Reports: Hx Diabetes, Hx Anemia - HX OF FOR LAST 4 YEARS BETTER SINCE IUD INSERTION Denies: Hx Thyroid Disease Cardiovascular History: Denies: Hx Hypertension, Hx Pacemaker/ICD Respiratory History: Reports: Hx Asthma Denies: Hx Chronic Obstructive Pulmonary Disease (COPD) GI History: Reports: Hx Hiatal Hernia Denies: Hx Ulcer History: Reports: Hx Kidney Stones - X 2 LAST ONE 2011 - SHE PASSED Musculoskeletal History: Reports: Hx Arthritis, Other Musculoskeletal History - BEING TESTED FOR RA - LEVELS 30 Sensory History: Reports: Hx Contacts or Glasses - GLASSES Opthamlomology History: Reports: Hx Contacts or Glasses - GLASSES Neurological History: Reports: Hx Migraine Psychiatric History: Reports: Hx Anxiety - CLAUSTAPHOBIC, Hx Depression Denies: Hx Panic Disorder - Cancer History Hx Chemotherapy: No Hx Radiation Therapy: No - Surgical History Surgery Procedure, Year, and Place: REPAIR FX LEFT FOOT AUGUST 2012 right knee surgery. [place] [facility] [facility] [facility] [facility]. 1994 PLACENTA EXTRACTION AFTER CHILDBIRTH[place] [facility] [place] [facility]. [place] 2004 [place] [facility]. 2004 RIGHT KNEE ARTHROSCOPY, [facility] Hx Anesthesia Reactions: No - WOULD PREFER SPINAL ANESTHESIA Infectious Disease History: No Infectious Disease History: Denies: Hx Clostridium Difficile, Hx Hepatitis, Hx Human Immunodeficiency Virus (HIV), Hx of Known/Suspected MRSA, Hx Shingles, Hx Tuberculosis, Hx Known/ Suspected VRE, Hx Known/Suspected VRSA, History Other Infectious Disease, Traveled Outside the [place] in Last 30 Days - Family History Known Family History: Negative: Cardiac Disease, Hypertension, Respiratory Disease - Social History Alcohol Use: Rare Substance Use Type: Reports: None Hx Tobacco Use: No Smoking Status (MU): Never Smoked Tobacco Review of Systems Positive: Chest Pain - Heart burn Negative: Shortness Of Breath Gastrointestinal: Negative - Bloody stool Positive: Abdominal Pain, Vomiting, Diarrhea Neurological: Other - Migraine Positive: Numbness - Right arm All Other Systems Reviewed And Are Negative: Yes Physical Exam - Summary Physical Exam Summary: GENERAL: ~Patient is a well developed and nourished F who is lying comfortable in the stretcher. ~Patient is not in any acute respiratory distress. HEAD AND FACE: Normocephalic EYES: PERRLA, EOMI x 2. EARS: Hearing grossly intact. MOUTH: Oropharynx within normal limits. NECK: Supple, trachea is midline, no adenopathy, no JVD, no carotid bruit. CHEST: Symmetric, no tenderness at palpation LUNGS: Clear to auscultation bilaterally. No wheezing or crackles. CVS: Regular rate and rhythm, S1 and S2 present, no murmurs or gallops appreciated. ABDOMEN: Soft, diffuse tenderness to palpation in abdomen, no rebound or guarding. Bowel sounds are normal. No abdominal abnormal pulsations. EXTREMITIES: Full ROM in all major joints, no edema, no cyanosis or clubbing. NEURO: Alert and oriented x 3. No acute neurological deficits. Speech is normal and follows commands. SKIN: Dry and warm Triage Information Reviewed: Yes Vital Signs On Initial Exam: Initial Vitals Temp Pulse Resp BP Pulse Ox 97.8 F 74 16 146/65 100 08/17/17 19:05 08/17/17 19:05 08/17/17 19:05 08/17/17 19:05 08/17/17 19:05 Vital Signs Reviewed: Yes Diagnostics - Vital Signs Vital Signs Temp Pulse Resp BP Pulse Ox 08/17/17 19:05 97.8 F 74 16 146/65 100 - Laboratory Result Diagrams: 08/17/17 20:12 08/17/17 20:12 Lab Statement: Any lab studies that have been ordered have been reviewed, and results considered in the medical decision making process. - Radiology CXR Xray Interpretation: No Acute Changes - NO ACTIVE CARDIOPULMONARY DISEASE IS NOTED. Dr. Salter has reviewed this report. Radiology Interpretation Completed By: Radiologist - CT CT Abd/Pel CT Interpretation: Positive (See Comments) - Multiple lymph nodes are noted in the mesentery suggestive of mesenteric adenitis. No drainable fluid collections are noted. IUD is in place. Cholelithiasis without definite biliary duct dilatation. Dr. Salter has reviewed this report. CT Interpretation Completed By: Radiologist - EKG 1913 Cardiac Rate: NL EKG Rhythm: Sinus Rhythm - 69 BPM Re-Evaluation - Re-Evaluation First Eval Re-Evaluation Time: 22:11 Change: Improved Comment: The patient's chest pain was relieved with NTG. Complex Multi-Symp Course/Dx Course Of Treatment: The patient is a 47 year old female coming from [facility] with GI symptoms but then developed chest pain associated with right arm tingling. In the ED course the patient was given Maalox, Xylocaine, Reglan, IV fluids, and Protonix. Workup was unremarkable. D-dimer and troponin was obtained. CXR clear and EKG obtained. CT Abd/Pel showed Multiple lymph nodes are noted in the mesentery suggestive of mesenteric adenitis. No drainable fluid collections are noted. IUD is in place. Cholelithiasis without definite biliary duct dilatation. Chest pain did resolve with NTG. I recommended the patient be admitted for further evaluation for ACS. However, the pt refused and said she wants to go home because tomorrow is Mothers Day and said she will return tomorrow if any pain returns. The patient is awake, alert, and oriented and able to make her own medical decisions, so she will be discharged AMA. The patient is diagnosed with Chest pain, Mesenteric adenitis, and Gallstones. Pt instructed to follow up with general surgery and cardiology. - Diagnoses Provider Diagnoses: Chest pain, Mesenteric adenitis, Gallstones Discharge - Sign-Out/Discharge Documenting (check all that apply): Discharge/Admit/Transfer - Discharge Plan Condition: Stable Disposition: AGAINST MEDICAL ADVICE Patient Education Materials: Chest Pain (ED), Gallstones (ED), Mesenteric Adenitis (ED) Referrals: Petra Weber MD [Medical Doctor] - Lourdes Mazariegos MD [Medical Doctor] - Additional Instructions: Follow up with Dr. Weber, general surgery, and Dr. Mazariegos, cardiology, in three days. RETURN TO THE EMERGENCY DEPARTMENT FOR ANY NEW OR WORSENING SYMPTOMS. The documentation as recorded by the Jean alva Jennifer accurately reflects the service I personally performed and the decisions made by , Sirena Salter MD.
== END 2017-08-17 22:31 | disposition left against medical advice (07) ==
LOC: ED 19:03
DX: R07.9 Chest pain, unspecified (principal); I88.9 Nonspecific lymphadenitis, unspecified; K80.80 Other cholelithiasis without obstruction; R11.10 Vomiting, unspecified; R19.7 Diarrhea, unspecified
CPT/HCPCS: 36415; 71046; 74177; 80053; 82553; 83605; 83735; 83880; 84484; 84702; 85025; 85379; 85610; 85730; 93005; 96374; 96375; 99283; A9270-GY; J2765; Q9967

== ENCOUNTER 2017-08-21 18:32 | Emergency (ER) | payer OTHER ==
[2017-08-21 19:41] VITALS: BP 139/74
--- NOTE | 2017-08-21 20:05 | UC ---
Throat Pain/Nasal Carlos HPI - HPI Summary HPI Summary: Patient is a 47-year-old female presenting to the with chief complaint of cough, congestion, sinus pressure and pain, left ear pain. Denies any fevers, sweats, chills. Patient is otherwise healthy. Around sick contacts daily. She notes she was in the hospital on Saturday evening and began with symptoms on Saturday. She has been trying NyQuil without relief. Has not taken any ibuprofen or Tylenol otherwise. Chest pain only with cough. This is nonproductive. No rhinorrhea. - History of Current Complaint Chief Complaint: UCRespiratory Stated Complaint: URI Time Seen by Provider: 08/21/17 19:02 Hx Obtained From: Patient Hx Last Menstrual Period: unk ?: No Onset/Duration: Gradual Onset Severity: Moderate Pain Intensity: 6 Pain Scale Used: 0-10 Numeric Cough: Nonproductive Associated Signs & Symptoms: Positive: Sinus Discomfort. Negative: Dysphagia, FB Sensation, Drooling, Wheezing, Hoarseness, Nasal Discharge - Epiglottits Risk Factors Epiglottis Risk Factors: Negative - Allergies/Home Medications Allergies/Adverse Reactions: Allergies Allergy/AdvReac Type Severity Reaction Status Date / Time azithromycin Allergy anaph Verified 08/21/17 19:41 [From Zithromax Z-Freddie] latex Allergy Rash Verified 08/21/17 19:41 Home Medications: Home Medications FLUoxetine CAP* [PROzac CAP*] 10 mg PO DAILY 08/21/17 [History Confirmed ] PMH/Surg Hx/FS Hx/Imm Hx Previously Healthy: Yes - Surgical History Surgical History: Yes Surgery Procedure, Year, and Place: REPAIR FX LEFT FOOT AUGUST 2012 right knee surgery. 1997 BILATERAL TUBAL LIGATION, [facility] [place]. WISDOM TEETH EXTRACTION, [facility] 1994 PLACENTA EXTRACTION AFTER [facility]ILDBIRTH[facility] [place] [place] HIATAL HERNIA REPAIR, [facility] [place]. 2003 OR 2004 LEFT HEEL SPUR, [facility] [place]. 2004 RIGHT KNEE ARTHROSCOPY, [facility] [place] - Family History Known Family History: Positive: None - denies cardio vascular disease in family lineage Negative: Cardiac Disease, Hypertension, Respiratory Disease - Social History Occupation: Employed Full-time Lives: With Family Alcohol Use: Rare Substance Use Type: None Smoking Status (MU): Never Smoked Tobacco - Immunization History Most Recent Influenza Vaccination: Fall 2015 Review of Systems Constitutional: Negative Skin: Negative Eyes: Negative ENT: Sore Throat, Ear Ache, Sinus Congestion, Sinus Pain/Tenderness Respiratory: Cough Cardiovascular: Negative Motor: Negative Neurovascular: Negative Musculoskeletal: Negative Neurological: Negative Is Patient Immunocompromised?: No All Other Systems Reviewed And Are Negative: Yes Physical Exam Triage Information Reviewed: Yes Appearance: Well-Appearing, Well-Nourished Vital Signs: Initial Vital Signs Temp 98.4 F 08/21/17 19:35 Pulse 89 08/21/17 19:35 Resp 16 08/21/17 19:35 BP 139/74 08/21/17 19:35 Pulse Ox 99 08/21/17 19:35 Vital Signs Reviewed: Yes Eye Exam: Normal Eyes: Positive: Conjunctiva Clear Neck exam: Normal Neck: Positive: Enlarged Nodes @ - cervical anterior Respiratory: Positive: Chest non-tender, Lungs clear Cardiovascular Exam: Normal Cardiovascular: Positive: RRR Musculoskeletal Exam: Normal Musculoskeletal: Positive: Strength Intact Neurological Exam: Normal Neurological: Positive: Alert Psychological: Positive: Normal Response To Family Skin Exam: Normal Throat Pain/Nasal Course/Dx - Course Course Of Treatment: Patient is evaluated for upper respiratory vs sinusitis. Patient has diffuse tenderness to the maxillary sinus and frontal sinuses. Left ear pain, on physical examination TM is non-erythematous with no bulging membrane. Chest clear to auscultation bilaterally. RRR. She appears otherwise well. Vital signs are stable. We'll give her a course of azithromycin, Tessalon and prednisone for ear pain and fullness. She is okay with this plan and discharged. She will follow-up with her PCP this week. - Differential Dx/Diagnosis Differential Diagnosis/HQI/PQRI: Sinusitis, URI Provider Diagnoses: Sinusitis Discharge - Sign-Out/Discharge Documenting (check all that apply): Discharge/Admit/Transfer - Discharge Plan Condition: Stable Disposition: HOME Prescriptions: Azithromyxin FREDDIE (NF) [Z-Freddie (Zithromax) 250 mg tabs #6] 2 tab PO .TODAY, THEN 1 DAILY #6 tab Benzonatate CAP* [Tessalon CAP*] 100 mg PO TID #21 cap predniSONE TAB* [Deltasone TAB*] 50 mg PO DAILY #5 tab MDD 1 Patient Education Materials: Sinusitis (ED) Referrals: Yasmeen Dowling MD [Primary Care Provider] - Additional Instructions: Prednisone once daily ONLY IN THE MORNING X 5 DAYS Claritin over the counter daily in the morning Azithromycin as prescribed Tessalon up to three times daily for cough Hot tea, lemon, honey will help with sore throat Humidifier in the home will help If you begin to have nasal congestion, over the counter flonase - Billing Disposition and Condition Condition: STABLE Disposition: HOME
== END 2017-08-21 20:05 | disposition home or self-care (01) ==
LOC: UCEAST 18:32
DX: J32.9 Chronic sinusitis, unspecified (principal); H92.02 Otalgia, left ear; Z88.1 Allergy status to other antibiotic agents; Z91.040 Latex allergy status
CPT/HCPCS: 99212; G0463

== ENCOUNTER 2017-11-11 17:56 | Emergency (ER) | payer OTHER ==
[2017-11-11 18:53] VITALS: BP 117/61
--- NOTE | 2017-11-11 19:07 | UC ---
Ear Complaint HPI - HPI Summary HPI Summary: This is nida Cervantes documenting for attending Ciaran Peguero MD. This patient is a 47 year old F presenting to [facility] with a chief complaint of an ear ache since the night of 11/07/2017. The patient rates the pain 7/10 in severity. Symptoms aggravated by lying down and bending her neck. Patient reports a swollen lymph node and left posterior head pain. Patient denies nasal drainage, coughing, tooth pain, pain when chewing, pain when swallowing, and jaw pain. The patient has been taking Tylenol. She is allergic to azithromycin and latex - History of Current Complaint Chief Complaint: UCEar Stated Complaint: EAR ACHE, AND SORE THROAT Time Seen by Provider: 11/11/17 18:56 Hx Obtained From: Patient Hx Last Menstrual Period: IUD Onset/Duration: Sudden Onset, Lasting Days - Since the night of 11/07/2017., Still Present Severity Initially: Moderate Severity Currently: Moderate Pain Intensity: 7 Pain Scale Used: 0-10 Numeric Aggravating Factors: Other - lying down and bending her neck - Allergies/Home Medications Allergies/Adverse Reactions: Allergies Allergy/AdvReac Type Severity Reaction Status Date / Time azithromycin Allergy anaph Verified 11/11/17 18:53 [From Zithromax Z-Rigo] latex Allergy Rash Verified 11/11/17 18:53 Home Medications: Home Medications Acetaminophen TAB* [Tylenol TAB*] 650 mg PO ONCE PRN 11/11/17 [History Confirmed 11/11/17] PMH/Surg Hx/FS Hx/Imm Hx Endocrine History: Diabetes - Borderline diabetes Respiratory History: Asthma - Surgical History Surgical History: Yes Surgery Procedure, Year, and Place: REPAIR FX LEFT FOOT AUGUST 2012 right knee surgery. 1997 BILATERAL TUBAL LIGATION, [facility] [place]. WISDOM TEETH EXTRACTION, [facility]. 1994 PLACENTA EXTRACTION AFTER [facility]DBIRTH, [facility] [place] [place] HIATAL HERNIA REPAIR, [facility] [place]. 2003 OR 2004 LEFT HEEL SPUR, [facility] [place]. 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 Denies tooth pain, denies pain when chewing, denies pain when swallowing, and denies jaw pain Respiratory: Cough - Denies cough, Other - Denies nasal drainage Neurological: Headache - Left posterior head pain All Other Systems Reviewed And Are Negative: Yes Physical Exam - Summary Physical Exam Summary: General: well-appearing, no pain distress Skin: warm, color reflects adequate perfusion, dry Head: normal Eyes: EOMI, NEELAM ENT: Posterior pharynx is open. Tenderness to palpation of L tragus. Ear canal is clear. TM is normal, Neck: Tenderness L upper neck and mild swelling. No erythema. No sign of an abscess. Neck is full ROM. Respiratory: CTA, breath sounds present Cardiovascular: RRR Abdomen: soft, nontender Bowel: present Musculoskeletal: normal, strength/ROM intact Neurological: sensory/motor intact, A&O x3 Psychological: affect/mood appropriate Triage Information Reviewed: Yes Vital Signs: Initial Vital Signs Temp 97.3 F 11/11/17 18:47 Pulse 65 11/11/17 18:47 Resp 16 11/11/17 18:47 BP 117/61 11/11/17 18:47 Pulse Ox 99 11/11/17 18:47 Ear Complaint Course/Dx - Course Course Of Treatment: TMJ NON TENDER. NO EVIDENCE OF OE. MOST PROBABLE CAUSE OF PAIN IS A BLOCKED SUB MANDIBULAR SALIVARY GLAND. THIS WAS DISCUSSED WITH THE PATIENT. F/U PMD; RECHECK SOONER IF WORSE. - Differential Dx/Diagnosis Provider Diagnoses: LEFT NECK PAIN AND SWELLING. LEFT SIDED HEADACHE Discharge - Sign-Out/Discharge Documenting (check all that apply): Patient Departure - Discharge Plan Condition: Stable Disposition: HOME Prescriptions: Amoxicillin/Clavulanate TAB* [Augmentin TAB 875*] 875 mg PO BID #20 tab Patient Education Materials: Acute Headache (ED), Sialoadenitis (ED), Neck Pain (ED) Referrals: Yasmeen Dowling MD [Primary Care Provider] - Additional Instructions: FOLLOW UP WITH YOUR DOCTOR. GET RECHECKED FOR ANY WORSENING OF YOUR CONDITION; PAIN, FEVER, YOU FEEL ILL OR QUESTIONS OR CONCERNS. - Billing Disposition and Condition Condition: STABLE Disposition: Home
== END 2017-11-11 19:26 | disposition home or self-care (01) ==
LOC: UCEAST 17:56
DX: M54.2 Cervicalgia (principal); R22.1 Localized swelling, mass and lump, neck; R51 Headache; Z88.1 Allergy status to other antibiotic agents; Z91.040 Latex allergy status
CPT/HCPCS: 99212; G0463

== ENCOUNTER 2018-05-26 18:38 | Emergency (ER) | payer OTHER ==
[2018-05-26 20:48] VITALS: BP 143/67
--- NOTE | 2018-05-26 20:55 | UC ---
Respiratory Complaint HPI - HPI Summary HPI Summary: Pt was dx with sinusitis and bronchitis 2 days ago - Rx amox. Pt has MDI with spacer - using intermittently. Pt states her PCP called today to "check in" pt states feels like devleoping "rattle" in right lung. PCP recommended come for CXR + fatigue. + wheeze + coarse cough with green sputum. 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 no fever medicaitons reviewed - History of Current Complaint Chief Complaint: UCRespiratory Stated Complaint: CHEST CONGESTION Time Seen by Provider: 05/26/18 20:41 Hx Obtained From: Patient, Medical Records Hx Last Menstrual Period: iud Pain Intensity: 8 - Allergies/Home Medications Allergies/Adverse Reactions: Allergies Allergy/AdvReac Type Severity Reaction Status Date / Time azithromycin Allergy anaph Verified 05/26/18 20:39 [From Zithromax Z-Rigo] latex Allergy Rash Verified 05/26/18 20:39 PMH/Surg Hx/FS Hx/Imm Hx Previously Healthy: Yes Respiratory History: Pneumonia - Surgical History Surgical History: Yes Surgery Procedure, Year, and Place: REPAIR FX LEFT FOOT AUGUST 2012 right knee surgery. 1997 BILATERAL TUBAL LIGATION, [facility] [place]. [place] EXTRACTION, [facility]. 1994 PLACENTA EXTRACTION AFTER [facility]IRTH, [facility] [place] [place] HIATAL HERNIA REPAIR, [facility] [place]. 2003 OR 2004 LEFT HEEL SPUR, [facility] [place]. 2004 RIGHT KNEE ARTHROSCOPY, [facility] [place] - Family History Known Family History: Positive: Non-Contributory Negative: Cardiac Disease, Hypertension, Respiratory Disease - Social History Occupation: Employed Full-time Lives: With Family Alcohol Use: Rare Substance Use Type: None Smoking Status (MU): Never Smoked Tobacco - Immunization History Most Recent Influenza Vaccination: Fall 2015 Review of Systems All Other Systems Reviewed And Are Negative: Yes Constitutional: Positive: Negative ENT: Positive: Nasal Discharge, Sinus Congestion Respiratory: Positive: Cough Physical Exam - Summary Physical Exam Summary: Vital Signs Reviewed: Yes A+Ox3, no distress Eyes: Conjunctiva Clear, NEELAM. EOM intact and full ENT: Hearing grossly normal TM x 2 clear, mmoist, uvula midline, no exudate, no erythema Neck: Positive: Supple Respiratory: Positive: No respiratory distress, No accessory muscle use + rhonci RUL scattered wheeze, coarse cough Cardiovascular: RRR nl s1, s2 no m/r CBT <2 sec abd soft + BS nt/nd no guarding, no distension Musculoskeletal Exam: HOLCOMB x 4 without difficulty Strength Intact, ROM Intact Neurological: Positive: Alert, + sensation throughout Psychological: Positive: Normal Response To Family Skin: Positive: no rash, no ecchymosis Triage Information Reviewed: Yes Vital Signs: Initial Vital Signs Temp 98.2 F 05/26/18 20:41 Pulse 74 05/26/18 20:41 Resp 18 05/26/18 20:41 BP 143/67 05/26/18 20:41 Pulse Ox 100 05/26/18 20:41 UC Diagnostic Evaluation - Laboratory O2 Sat by Pulse Oximetry: 100 - Radiology Radiology Interpretation Completed By: ED Physician - no acute Re-Evaluation - Re-Evaluation First Eval Change: Improved - less coughing,better aeration following neb aware cxr prelim - no infilatrate recommend adding prednisone to regimen mdi Q4hr decognestant humidifiy are secretion precaution return precaution Respiratory Course/Dx - Course Course Of Treatment: Pt here for cxr - recently dx with bronchitis and sinusitis - on amox. feels rattle in lung, h/o pna - pcp advised. vss. rhonci right lung, upper coarse cough and scattered wheeze. will give duoneb. cxr. reassess. BP elevated- recommend PCP recheck - Differential Dx/Diagnosis Provider Diagnosis: Acute bronchitis Discharge - Sign-Out/Discharge Documenting (check all that apply): Patient Departure All imaging exams completed and their final reports reviewed: No - Discharge Plan Condition: Stable Disposition: HOME Prescriptions: Fluconazole [Diflucan 150 MG (NF)] 150 mg PO ONCE PRN #1 tab PRN Reason: vaginal yeast infection predniSONE TAB* [Deltasone TAB*] 50 mg PO DAILY #4 tab Patient Education Materials: Acute Bronchitis (ED) Referrals: Yasmeen Dowling MD [Primary Care Provider] - Additional Instructions: - stay well hydrated. Drink plenty of non-alocholic, non-caffinated beverages - humidify the air where you sleep (humidifier, boil water, cups of water next to heat register, run a hot shower) - Alternate ibuprofen (Advil, Motrin) 400mg and tylenol every 3 hours for fever - Okay to take over the counter cough and cold medication - continue antibiotics as previously prescribed - take prednisone as prescribed - Use your inhaler - 2 puffs every 4hours today and tomorrow, the as needed - These infections are spread by secretions - do not share eating or drinking utensils - wash cell phone, computer mouse ,TV remote, etc. After you have been on antibiotics for 2 days, change your toothbrush and wash your pillowcase - get plenty of restful sleep - you have been given a treatment for a vaginal yeast infection - okay to take if you develop an infection after taking antibiotics - if you continue to have high fever, develop vomiting, rash, shortness of breath or any other concerns it is recommended you go to the emergency department for further evaluation and treatment - Billing Disposition and Condition Condition: STABLE Disposition: Home
[2018-05-26] MEDS ORDERED: Albuterol/Ipratropium NEB.SOL* Albuterol 2.5 MG/Ipratropium 0.5 MG 3 ML INH ONE (21:02)
[2018-05-26] MEDS ORDERED: predniSONE TAB* 20 MG PO ONE (21:45)
--- NOTE | 2018-05-27 11:58 | UC ---
- Progress Note Progress Note: Patient Name: KATHY NOLAND Medical Record#: [id number] Ordering Physician: Bess Hines MD Acct.#: [id number] : 1970 Age: 47 Sex: F Location: [facility] Exam Date: 05/26/182101 ADM Status: DEP ER Order Information: CHEST PA & LAT 2 VWS Accession Number: [id number] CPT: 84573 HISTORY: cough right upper lung "pain" congestion COMPARISONS: August 17, 2017 VIEWS: 4: Frontal dual-energy and lateral views of the chest. FINDINGS: CARDIOMEDIASTINAL SILHOUETTE: The cardiomediastinal silhouette is normal. ANTONELLA: The antonella are normal. PLEURA: The costophrenic angles are sharp. No pleural abnormalities are noted. LUNG PARENCHYMA: The lungs are clear. ABDOMEN: The upper abdomen is clear. There is no subphrenic gas. BONES AND SOFT TISSUES: Degenerative changes are noted along the spine. OTHER: None. IMPRESSION: NO ACTIVE CARDIOPULMONARY DISEASE. R0 Preliminary Imaging Read R0 <Electronically signed by Zeke Chowdhury MD in OV> 05/27/18743 Dictated By: Zeke Chowdhury MD Dictated Date/Time: 05/27/18743 Transcribed Date/Time: 05/27/18743 Copy to: CC:Yasmeen Dowling MD; Bess Hines MD Imaging - [facility] Imaging - [facility] [address] [address] ph ([phone]) ph ([phone]) ph ([phone]) This report is only to be considered final once signed by the Provider(s) as displayed in the "<Electronically Signed by >" field (s). Absence of a signature indicates the report is in a draft status and still needs to be finalized. In the event this document was created by someone other than the signing Provider, the individual initiating the document will be listed in the "Entered by:" or "Dictated by:" reina. 1 of 1 Course/Dx - Diagnoses Provider Diagnoses: Acute bronchitis Discharge - Sign-Out/Discharge Documenting (check all that apply): Post-Discharge Follow Up All imaging exams completed and their final reports reviewed: Yes - Discharge Plan Condition: Stable Disposition: HOME Prescriptions: Fluconazole [Diflucan 150 MG (NF)] 150 mg PO ONCE PRN #1 tab PRN Reason: vaginal yeast infection predniSONE TAB* [Deltasone TAB*] 50 mg PO DAILY #4 tab Patient Education Materials: Acute Bronchitis (ED) Referrals: Yasmeen Dowling MD [Primary Care Provider] - Additional Instructions: - stay well hydrated. Drink plenty of non-alocholic, non-caffinated beverages - humidify the air where you sleep (humidifier, boil water, cups of water next to heat register, run a hot shower) - Alternate ibuprofen (Advil, Motrin) 400mg and tylenol every 3 hours for fever - Okay to take over the counter cough and cold medication - continue antibiotics as previously prescribed - take prednisone as prescribed - Use your inhaler - 2 puffs every 4hours today and tomorrow, the as needed - These infections are spread by secretions - do not share eating or drinking utensils - wash cell phone, computer mouse ,TV remote, etc. After you have been on antibiotics for 2 days, change your toothbrush and wash your pillowcase - get plenty of restful sleep - you have been given a treatment for a vaginal yeast infection - okay to take if you develop an infection after taking antibiotics - if you continue to have high fever, develop vomiting, rash, shortness of breath or any other concerns it is recommended you go to the emergency department for further evaluation and treatment - Billing Disposition and Condition Condition: STABLE Disposition: Home
== END 2018-05-26 22:00 | disposition home or self-care (01) ==
LOC: UCEAST 18:38
DX: J20.9 Acute bronchitis, unspecified (principal); J32.9 Chronic sinusitis, unspecified; Z88.1 Allergy status to other antibiotic agents; Z91.040 Latex allergy status
CPT/HCPCS: 71046; 99212; A9270-GY; G0463; J7512

== ENCOUNTER 2018-06-04 17:50 | Emergency (ER) | payer OTHER ==
[2018-06-04 18:36] VITALS: BP 166/87
--- NOTE | 2018-06-04 18:38 | UC ---
Respiratory Complaint HPI - HPI Summary HPI Summary: 47 y/o female presents to the urgent care c/o sinus congestion, pressure and pain w/ yellowish nasal discharge, moderated PND and dry cough for the past 12 days. Pt reports she was seen here at the [facility] on 05/24 and 2018 and Dx w/ Sinusitis and Rx Amoxicillin PO which she finished 2 days ago. A chest X-Ray was also done and it was negative. She was also Rx Prednisone PO. She feels her symptoms are worsening after she finished the antibiotic. 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 Today she feels sinus pain is 8/10 w/ moderate yellowish PND. She states every winter she gets similar symptoms and end up as Bronchitis. Pt denies SOB, wheezing today, chest pain, VERMA, abdominal pain, N/V/ D. - History of Current Complaint Chief Complaint: UCRespiratory Stated Complaint: UPPER RESP Time Seen by Provider: 06/04/18 18:36 Hx Obtained From: Patient Hx Last Menstrual Period: iud Onset/Duration: Gradual Onset, Lasting Days - 12 days, Still Present, Worse Since - yesterday w/ body aches, a lot sinus pressure Timing: Constant Severity Initially: Mild Severity Currently: Moderate Pain Intensity: 8 Pain Scale Used: 0-10 Numeric Character: Cough: Nonproductive - dry Aggravating Factors: Recumbent Position Alleviating Factors: Bronchodilator, OTC Meds Associated Signs And Symptoms: Positive: Chills - today, URI, Nasal Congestion, Sinus Discomfort. Negative: Wheezing - Risk Factors Pulmonary Embolism Risk Factors: Negative Cardiac Risk Factors: Negative Pseudomonas Risk Factors: Negative Tuberculosis Risk Factors: Negative - Allergies/Home Medications Allergies/Adverse Reactions: Allergies Allergy/AdvReac Type Severity Reaction Status Date / Time azithromycin Allergy anaph Verified 06/04/18 18:37 [From Zithromax Z-Rigo] latex Allergy Rash Verified 06/04/18 18:37 Home Medications: Home Medications Fluticasone HFA 220 mcg(NF) [Flovent HFA 220 Mcg(NF)] 1 puff INH BID 06/04/18 [ History Confirmed 06/04/18] PMH/Surg Hx/FS Hx/Imm Hx Previously Healthy: Yes Cardiovascular History: Hypertension - diet controlled Respiratory History: Asthma, Bronchitis, Pneumonia - Surgical History Surgical History: Yes Surgery Procedure, Year, and Place: REPAIR FX LEFT FOOT AUGUST 2012 right knee surgery. 1997 BILATERAL TUBAL LIGATION, [facility]. WISDOM TEETH EXTRACTION, [facility]. 1994 PLACENTA EXTRACTION AFTER CHILDBIRTH[facility] [place] 2010 HIATAL HERNIA REPAIR, [facility]. 2003 OR 2004 LEFT HEEL SPUR, [facility]. 2004 RIGHT KNEE ARTHROSCOPY, [facility] - Family History Known Family History: Positive: Hypertension, Non-Contributory Negative: Cardiac Disease, Respiratory Disease - Social History Occupation: Employed Full-time Lives: With Family Alcohol Use: Rare Substance Use Type: None Smoking Status (MU): Never Smoked Tobacco - Immunization History Most Recent Influenza Vaccination: Fall 2015 Review of Systems All Other Systems Reviewed And Are Negative: Yes Constitutional: Positive: Chills - today, Other - body aches Skin: Positive: Negative Eyes: Positive: Negative ENT: Positive: Nasal Discharge - yellowish, Sinus Congestion, Sinus Pain/ Tenderness, Other - moderate yellowish PND Respiratory: Positive: Cough - dry Cardiovascular: Positive: Negative Gastrointestinal: Positive: Negative Genitourinary: Positive: Negative Motor: Positive: Negative Neurovascular: Positive: Negative Musculoskeletal: Positive: Myalgia Neurological: Positive: Negative Psychological: Positive: Negative Is Patient Immunocompromised?: No Physical Exam - Summary Physical Exam Summary: VITAL SIGNS: Reviewed. GENERAL: Patient is a well developed and nourished female who is sitting comfortable in the examining table. Patient is not in any acute respiratory distress. HEAD AND FACE: No signs of trauma. No ecchymosis, hematomas or skull depressions. B/l maxillary and frontal sinus tenderness on percussion. EYES: PERRLA, EOMI x 2, No injected conjunctiva, no nystagmus. No photophobia. EARS: Hearing grossly intact. Ear canals and tympanic membranes are within normal limits. Nose: edematous and erythematous nasal mucosa w/ clear nasal discharge. MOUTH: Positive no erythema, no tonsillar enlargement. Uvula in midline. NECK: Supple, trachea is midline, Positive anterior cervical lymphadenopathy, no JVD, no carotid bruit, no c-spine tenderness, neck with full ROM. No meningeal signs, no Kernig's or brudzinskis signs. CHEST: Symmetric, no tenderness at palpation LUNGS: Clear to auscultation bilaterally. No wheezing or crackles. CVS: Regular rate and rhythm, S1 and S2 present, no murmurs or gallops appreciated. ABDOMEN: Soft, non-tender. No signs of distention. No rebound no guarding, and no masses palpated. Bowel sounds are normal. EXTREMITIES: FROM in all major joints, no edema, no cyanosis or clubbing. NEURO: Alert and oriented x 3. No acute neurological deficits. Speech is normal and follows commands. SKIN: Dry and warm Triage Information Reviewed: Yes Vital Signs: Initial Vital Signs Temp 99.0 F 06/04/18 18:33 Pulse 101 06/04/18 18:33 Resp 18 06/04/18 18:33 BP 166/87 06/04/18 18:33 Pulse Ox 100 06/04/18 18:33 Diagnostic Evaluation - Laboratory O2 Sat by Pulse Oximetry: 100 Respiratory Course/Dx - Course Course Of Treatment: 47 y/o female presents to the urgent care c/o sinus congestion, pressure and pain w/ yellowish nasal discharge, moderated PND and dry cough for the past 12 days. Pt reports she was seen here at the [facility] on 05/24 and 05/26/2018 and Dx w/ Sinusitis and Rx Amoxicillin PO which she finished 2 days ago. A chest X-Ray was also done and it was negative. She was also Rx Prednisone PO. She feels her symptoms are worsening after she finished the antibiotic. 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 Today she feels sinus pain is 8/10 w/ moderate yellowish PND. She states every winter she gets similar symptoms and end up as Bronchitis. Pt denies SOB, wheezing today, chest pain, VERAM, abdominal pain, N/V/D. Hx obtained. Pt w/ sinusitis and possible recent co-infection w/ a viral syndrome on examination. Rapid influenza A&B: postive influenza A. Rapid strep ordered: negative. Pt Rx Tamiflu PO , Ibuprofen PO, Tessalon tabs and strongly advised to stick to symptomatic treatment w/ the saline drops, flonase nasal spray to clear sinuses. Advised on hand washing and wear a mask to avoid spreading. Pt advised to rest, increase fluid intake, eat well and avoid strenuous exercise. Pt's BP is elevated today advised to decrease salt in diet, monitor BP and f/u with PCP for further management.If symptoms do not improve or worsen advised to return to the urgent care or f/u with her PCP in 2-3 days for further evaluation and treatment. D/C instructions explained. Pt understood and agreed - Differential Dx/Diagnosis Differential Diagnosis/HQI/PQRI: Asthma, Bronchitis, Influenza, Laryngitis, Sinusitis Provider Diagnosis: Influenza A, Cough, Sinusitis Discharge - Sign-Out/Discharge Documenting (check all that apply): Patient Departure - d/c home All imaging exams completed and their final reports reviewed: No Studies - Discharge Plan Condition: Stable Disposition: HOME Prescriptions: Benzonatate CAP* [Tessalon 100 MG CAP*] 100 mg PO TID #21 cap Ibuprofen TAB* [Motrin TAB* 600 MG] 600 mg PO Q6H PRN #30 tab PRN Reason: Pain Oseltamivir CAP* [Tamiflu CAP*] 75 mg PO BID #10 cap Patient Education Materials: Influenza (ED) Forms: *Work Release Referrals: Yasmeen Dowling MD [Primary Care Provider] - 2 Days Additional Instructions: 1- Please take the full course of the antiviral to avoid resistance. Encourage hand washing and wear a mask to avoid spreading. 2-Please continue taking Ibuprofen PO q6-8hrs prn as instructed after meals to alleviate fever, and sore throat. Increase fluid intake, eat well, rest and avoid strenuous exercise 3- Take Tessalon tabs PO as directed to alleviate cough. Use the albuterol inhaler at night to alleviate bronchospasm. Use Saline drops and flonase nasal spray to clear your sinuses as directed 4-If symptoms do not improve or worsen please return to the urgent care or f/u with your PCP in 3 days for further evaluation and treatment. - Billing Disposition and Condition Condition: STABLE Disposition: Home - Attestation Statements Provider Attestation: I was available for consult. This patient was seen by the [facility]. The patient was not presented to, seen by, or examined by me. -Sabrina
[2018-06-04 19:05] LABS: Influenza A Molecular POSITIVE (Negative)
== END 2018-06-04 19:28 | disposition home or self-care (01) ==
LOC: UCEAST 17:50
DX: J10.1 Influenza due to other identified influenza virus with other respiratory manifestations (principal); R05 Cough; J32.9 Chronic sinusitis, unspecified; I10 Essential (primary) hypertension; J45.909 Unspecified asthma, uncomplicated; Z87.01 Personal history of pneumonia (recurrent); Z88.1 Allergy status to other antibiotic agents; Z91.040 Latex allergy status
CPT/HCPCS: 87651; 99212; G0463

== ENCOUNTER 2019-01-14 18:20 | Emergency (ER) | payer OTHER ==
--- OUTSIDE RECORDS SUMMARY | 2019-01-14 18:40 | XMS REPORT | Continuity of Care Document ---
:1970 External Reference #:[id number] Author Name Sintia Petty M.D. (transmitted by agent of provider Jorge Jackson) Address [address] [place] [address] [place] [address] Care Team Providers Name Role Phone Sherri Smith MD - Internal Care Team Information Enrollment Services [facility] Care Team Information Enrollment Services [place] - Physical Therapist Yasmeen Dowling MD - Internal Care Team Information Enrollment Services Dean [phone] Medicine Problems Active Problems Provider Date Obesity Shayy Lin M.D. Onset: 04/10/2011 Arthralgia of the ankle and/or foot Rad Marcus M.D. Onset: 05/27/2012 Immunological Findings Nonspecified Other & Rad Marcus M.D. Onset: 2012 Unspecified Morbid obesity Yasmeen Dowling M.D. Onset: 10/11/2016 Sleep apnea Yasmeen Dowling M.D. Onset: 10/11/2016 Anxiety state Yasmeen Dowling M.D. Onset: 10/11/2016 Cholelithiasis without obstruction Yasmeen Dowling M.D. Onset: 10/15/2016 Kidney stone Yasmeen Dowling M.D. Onset: 10/15/2016 Note: non obstructive Patellar tendonitis Marcos Martinez MD Onset: 01/14/2018 Carpal tunnel syndrome Yasmeen Dowling M.D. Onset: 11/06/2018 Social History Type Date Description Comments Sex Unknown Tobacco Use Start: Unknown Never Smoked Cigarettes ETOH Use Rarely consumes alcohol Recreational Drug Use Denies Drug Use Tobacco Use Start: Unknown Patient has never smoked Smoking Status Reviewed: 11/24/18 Patient has never smoked Exercise Type/Frequency Exercises regularly walking every night Allergies, Adverse Reactions, Alerts Active Allergies Reaction Severity Comments Date Zithromax serum reaction hospitalized for days. 08/01/2007 Knotted up joints Latex 07/17/2013 Medications Active Medications SIG Qnty Indications Ordering Provider Date Ventolin HFA inhale 2 puffs 18units Yasmeen Dowling, 2018 by mouth four M.D. 108(90Base) mcg/Act times a day as Aerosol needed Fluoxetine HCL 1 by mouth every 30caps F41.9 Cezar Blanco, 10/11/2016 10mg day M.D. Capsules Ibuprofen prn Unknown 200mg Capsules One Daily multi vitamin Unknown daily Calcium 500 1 by mouth every Unknown Tablets day Aspirin 1 by mouth every Unknown 81mg Tablets DR day Vitamin C 1 by mouth daily Unknown Vitamin D 1 by mouth daily Unknown Flovent HFA 2 puff twice a 36gm Yasmeen Dowling, 220mcg/Act day as needed M.D. Aerosol History Medications Prednisone 3 tab daily X 2 QS J45.21 Yasmeen Dowling, 2018 - 20mg days then 2 tab M.D. 07/05/2018 Tablets by mouth every day x 4 days then 1 tab daily for 3 days, then 1/2 tab daily for 3 days Albuterol Sulfate has not picked up 150ml Yasmeen Dowling, 06/20/2018 - yet------inhale M.D. 2018 0.63mg/3ML the contents of 1 Nebulizer vial by mouth via nebulizer every 4 to 6 hours as needed Medications Administered in Office Medication SIG Qnty Indications Ordering Provider Date Depomedrol 40MG Sintia Petty M.D. 11/24/2018 Injection Depomedrol 40MG Sintia Petty M.D. 11/24/2018 Injection PPD Nurse Visit [facility] 07/10/2011 Injection PPD Shayy Lin M.D. 07/10/2011 Injection PPD Anais Romeo PA 06/28/2009 Injection Immunizations CPT Code Status Date Vaccine Lot # [id number] Given 02/10/2015 Flu Vaccine Split Virus Preservative Free For Indiv 3Yr Older [id number] Given 01/10/2012 Fluzone Vaccine [id number] Given 02/08/2009 Influenza Virus Vaccine, Pandemic Formulation [id number] Given 02/08/2009 Administration Swine Flu Shot [id number] Given 01/18/2009 Influenza Virus 3Yrs & Over [id number] Vital Signs Date Vital Result Comment 11/24/2018 2:22pm Height 65 inches 5'5" Weight 238.00 lb Heart Rate 60 /min BP Systolic 126 mmHg BP Diastolic 82 mmHg BMI (Body Mass Index) 39.6 kg/m2 10/20/2018 1:43pm Height 65 inches 5'5" Weight 240.50 lb Heart Rate 68 /min BP Systolic Sitting 142 mmHg BP Diastolic Sitting 80 mmHg Respiratory Rate 18 /min Pain Level 7 O2 % BldC Oximetry 98 % BMI (Body Mass Index) 40.0 kg/m2 Results Test Date Facility Test Result H/L Range Note CBC Auto 09/26/2018 [facility] White Blood 8.3 10^3/uL Normal 3.5-10.[address] [place] [address] [phone] Red Blood Count 4.40 10^6/uL Normal 3.70-4.87 Hemoglobin 13.1 g/dL Normal 12.0-16.0 Hematocrit 38 % Normal 35-47 Mean Corpuscular Volume 87 fL Normal 80-97 Mean Corpuscular Hemoglobin 30 pg Normal 27-31 Mean Corpuscular HGB Conc 34 g/dL Normal 31-36 Red Cell Distribution Width 13 % Normal 10-15 Platelet Count 284 10^3/uL Normal 150-450 Mean Platelet Volume 9.5 fL Normal 7.4-10.4 Abs Neutrophils 5.6 10^3/uL Normal 1.5-7.7 Abs Lymphocytes 1.9 10^3/uL Normal 1.0-4.8 Abs Monocytes 0.5 10^3/uL Normal 0-0.8 Abs Eosinophils 0.2 10^3/uL Normal 0-0.6 Abs Basophils 0.1 10^3/uL Normal 0-0.2 Abs Nucleated RBC 0.0 10^3/uL Granulocyte % 67.3 % Lymphocyte % 22.6 % Monocyte % 6.3 % Eosinophil % 2.7 % Basophil % 1.1 % Nucleated Red Blood Cells % 0.0 Comp Metabolic 09/26/2018 [facility] Sodium 139 mmol/L Normal 135-[address] [place] [address] [phone] Potassium 4.0 mmol/L Normal 3.5-5.0 Chloride 108 mmol/L Normal 101-111 Co2 Carbon Dioxide 25 mmol/L Normal 22-32 Anion Gap 6 mmol/L Normal 2-11 Glucose 92 mg/dL Normal 70-100 Blood Urea Nitrogen 14 mg/dL Normal 6-24 Creatinine 0.82 mg/dL Normal 0.51-0.95 BUN/Creatinine Ratio 17.1 Normal 8-20 Calcium 9.2 mg/dL Normal 8.6-10.3 Total Protein 6.6 g/dL Normal 6.4-8.9 Albumin 3.9 g/dL Normal 3.2-5.2 Globulin 2.7 g/dL Normal 2-4 Albumin/Globulin Ratio 1.4 Normal 1-3 Total Bilirubin 0.50 mg/dL Normal 0.2-1.0 Alkaline Phosphatase 54 U/L Normal 34-104 Alt 16 U/L Normal 7-52 Ast 14 U/L Normal 13-39 Egfr Non- 74.4 >60 Egfr 90.0 >60 1 Laboratory 09/26/2018 [facility] TSH (Thyroid 1.79 Normal 0.34 -5.[address] Stim Horm) mcIU/[place] [address] [phone] Vitamin B12 317 pg/mL Normal 180-914 2 Erythrocyte Sed Rate 25 mm/Hr High 0-19 C Reactive Protein 6.55 mg/L Normal <8.01 Connective Tissue 09/26/2018 [facility] Anti-Nuclear Antibody 0.8 U [address] [place] [address] [phone] Cyclic Citrullinated Peptide <15.6 U 4 Interpretation See Comment 5 Laboratory test 09/26/2018 [facility] Rheumatoid 17 IU/mL High <[address] [place] [address] [phone] Lyme Screen W/ Reflex To WB Negative Negative Hemoglobin A1c (Glyco HGB) 5.3 % Normal 4.0-5.6 6 Laboratory 08/28/2018 [facility] Surgical SEE RESULT 7, 8 test finding [address] [place] [address] [phone] Laboratory 06/04/2018 [facility] Influenza A POSITIVE Abnormal Negative 9 test finding [address] [place] [address] Molecular [phone] Laboratory 06/04/2018 [facility] Rapid Strep Negative Negative 10 test finding [address] [place] [address] [phone] 1 Because ethnic data is not always readily available, this report includes an eGFR for both -Americans and non- Americans. The National Kidney Disease Education Program (NKDEP) does not endorse the use of the MDRD equation for patients that are not between the ages of 18 and 70, are , have extremes of body size, muscle mass, or nutritional status, or are non- or non-. According to the National Kidney Foundation, irrespective of diagnosis, the stage of the disease is based on the level of kidney function: Stage Description GFR(mL/min/1.73 m(2)) 1 Kidney damage with normal or decreased GFR 90 2 Kidney damage with mild decrease in GFR 60-89 3 Moderate decrease in GFR 30-59 4 Severe decrease in GFR 15-29 5 Kidney failure <15 (or dialysis) 2 Normal Range 180 to 914 Indeterminate Range 145 to 180 Deficient Range <145 3 REFERENCE VALUE <=1.0 (Negative) 4 REFERENCE VALUE <20.0 (Negative) 5 Tests for antibodies to dsDNA and TENZIN antigens are not performed automatically unless the AMINATA result is > or = 3.0 U. Studies performed at [facility] indicate that positive AMINATA results <3.0 U are rarely accompanied by positive second order tests. Test Performed by: [facility] - [facility] [address] [place] [address] 6 Therapeutic target for the treatment of diabetes mellitus patients is <7% HBA1C, and in selective patients <6.0%. Please refer to [place] [employer] diabetic care guidelines for further information. 7 3500-A:Morphology: irregularly pigmented macule with irregular pigmentary network under dermoscop 8 SEE RESULT BELOW Name: NOLAND,ANGELIQUE Shanna : [address]: Mary Ferrell MD Acct: [id number] Unit: [id number] AGE: 48 Location: [facility] Re08/28/18 SEX: F Status: REG REF SPEC: [id number] PAT: 08/28/18- [facility] DR: Mary Ferrell MD REQ: [id number] RECD: 08/28/18612 STATUS: PANCHO QUIROZ DR: Yasmeen Dowling MD _ ORDERED: LEVEL 4 COMMENTS: [id number] FINAL DIAGNOSIS Skin, left posterior shoulder, excisional biopsy: -- Compound melanocytic nevus with architectural disorder and moderate cytologic atypia. -- The lesion is excised in the planes of sectioning examined. CLINICAL HISTORY Please check margins PRE-OPERATIVE DIAGNOSIS Irregularly pigmented macule with irregular pigmentary network under dermoscopy POST-OPERATIVE DIAGNOSIS Dysplastic nevus GROSS DESCRIPTION The specimen is received in formalin labeled, Left Posterior Shoulder, and consists of a 0.7 x 0.6 cm patchy saxena-white ovoid wrinkled hairbearing skin shave with a central 0.3 x 0.2 cm variegated brown macule which is inked, bisected and submitted entirely in one cassette. Signed by and Reported on: Bruna Krishna MD 08/29/18 1049 END OF REPORT DEPARTMENT OF PATHOLOGY, [address] [place] [address] Fernando Watters M.D. Director [facility] # [id number] 9 Nursing Home Manager: [id number] Nursing Home Manager: [id number] Procedures Date Code Description Status 11/24/2018 Injection, Carpal Tunnel Completed 11/24/2018 Injection, Carpal Tunnel Completed 2018 [address] Inhalation [place] For Acute Airway Obstruction Completed W/Nebulizer/Inhaler 04/07/2018 [id number] Mammogram Completed 10/30/2016 [id number] Mammogram Completed 10/11/2016 [id number] Mammogram Completed 08/01/2015 [id number] Mammogram Completed 07/28/2014 [id number] Mammogram Completed 07/17/2013 [id number] Mammogram Completed 05/30/2012 [id number] Mammogram Completed 09/16/2007 [id number] Mammogram Completed Medical Devices Description No Information Available Encounters Type Date Location Provider Dx Diagnosis Office Visit 10/20/2018 [facility] Vanda Fitch, G56.03 Carpal tunnel 1:30p Of C.M.A. RPA-C syndrome, bilateral upper limbs G56.23 Lesion of ulnar nerve, bilateral upper limbs R20.0 Anesthesia of skin R20.2 Paresthesia of skin Office Visit 09/26/2018 1:40p [facility] Internal Uri Rosamaria, [employer] R53.83 Other fatigue Medicine - Ccmob R20.2 Paresthesia of skin M25.50 Pain in unspecified joint M79.632 Pain in left forearm M79.631 Pain in right forearm Office 2018 DoNotUse [facility] Internal Yasmeen J45.21 Mild intermittent Visit 8:10a Medicine-Rolly Dowling M.D. asthma with (acute) exacerbation Assessments Date Code Description Provider 11/24/2018 G56.03 Carpal tunnel syndrome, bilateral upper Sintia Petty M.D. limbs 10/20/2018 G56.03 Carpal tunnel syndrome, bilateral upper Vanda Bitting, RPA-C limbs 10/20/2018 G56.23 Lesion of ulnar nerve, bilateral upper limbs Vanda Bitting, RPA-C 10/20/2018 R20.0 Anesthesia of skin Vanda Bitting, RPA-C 10/20/2018 R20.2 Paresthesia of skin Vanda Bitting, RPA-C 09/26/2018 R53.83 Other fatigue Uri Rosamaria, [employer] 09/26/2018 R20.2 Paresthesia of skin Uri Rosamaria, [employer] 09/26/2018 M25.50 Pain in unspecified joint Uri Rosamaria, [employer] 09/26/2018 M79.632 Pain in left forearm Uri Rosamaria, [employer] 09/26/2018 M79.631 Pain in right forearm Uri Rosamaria, [employer] 2018 J45.21 Mild intermittent asthma with (acute) Yasmeen Dowling M.D. exacerbation Plan of Treatment Future Appointment(s):01/02/2019 12:00 pm - Blake Flood M.D. at [facility]11/24/2018 - Sintia Petty M.D.G56.03 Carpal tunnel syndrome, bilateral upper limbsFollow up:Follow up: As needed Functional Status Description No Information Available Mental Status Description No Information Available Referrals Refer to Dr Reason for Referral Status Appt Date Blake Flood MD Sent 01/02/2019 [address] [place] [address] [place] [address] [phone] Sintia Petty M.D. Scheduled 11/20/2018 [address] [facility] [place] [address] [phone]
[2019-01-14 18:42] VITALS: BP 150/67
--- NOTE | 2019-01-14 19:28 | UC ---
Throat Pain/Nasal Carlos HPI - HPI Summary HPI Summary: Patient is a 48yo female presenting with sore throat, bilateral ear pain, headache, sinus congestion and tenderness x6 days. Notes PND. Patient notes intermittent chills. Denies fever. Denies cough. Denies SOB and wheezing. Denies chest pain. Denies n/v/d and abdominal pain. Denies concern for strep. Has been taking nyquil and nasal spray with little relief. - History of Current Complaint Chief Complaint: UCRespiratory Stated Complaint: EAR ACHE, AND SINUS CONGESTION Hx Obtained From: Patient Hx Last Menstrual Period: IUD Onset/Duration: Gradual Onset, Lasting Days Severity: Mild Pain Intensity: 4 Pain Scale Used: 0-10 Numeric - Allergies/Home Medications Allergies/Adverse Reactions: Allergies Allergy/AdvReac Type Severity Reaction Status Date / Time azithromycin Allergy Severe Anaphylatic Verified 01/14/19 18:43 [From Zithromax Z-Rigo] Shock latex Allergy Rash Verified 01/14/19 18:43 PMH/Surg Hx/FS Hx/Imm Hx Previously Healthy: Yes - Surgical History Surgical History: Yes Surgery Procedure, Year, and Place: REPAIR FX LEFT FOOT AUGUST 2012 right knee surgery. 1997 BILATERAL TUBAL LIGATION, [facility]. WISDOM TEETH EXTRACTION, [facility]. 1994 PLACENTA EXTRACTION AFTER [facility]ILDBIRTH[facility] HIATAL HERNIA REPAIR, [facility]. 2003 OR 2004 LEFT HEEL SPUR, [facility]. 2004 RIGHT KNEE ARTHROSCOPY, [facility] - Family History Known Family History: Positive: Hypertension, Non-Contributory Negative: Cardiac Disease, Respiratory Disease - Social History Alcohol Use: Rare Substance Use Type: None Smoking Status (MU): Never Smoked Tobacco - Immunization History Most Recent Influenza Vaccination: Fall 2015 Review of Systems All Other Systems Reviewed And Are Negative: Yes Constitutional: Positive: Chills, Fatigue. Negative: Fever Eyes: Positive: Negative. Negative: Blurred Vision, Drainage, Eye Redness, Photophobia ENT: Positive: Sore Throat, Ear Ache, Nasal Discharge, Sinus Congestion, Sinus Pain/Tenderness Respiratory: Positive: Negative. Negative: Shortness Of Breath, Cough Cardiovascular: Positive: Negative. Negative: Palpitations, Chest Pain Gastrointestinal: Positive: Negative. Negative: Abdominal Pain, Vomiting, Diarrhea, Nausea Musculoskeletal: Positive: Negative Neurological: Positive: Headache Physical Exam Triage Information Reviewed: Yes Appearance: Well-Appearing, No Pain Distress, Well-Nourished Vital Signs: Initial Vital Signs Temp 97.5 F 01/14/19 18:39 Pulse 75 01/14/19 18:39 Resp 20 01/14/19 18:39 BP 150/67 01/14/19 18:39 Pulse Ox 100 01/14/19 18:39 Vital Signs Reviewed: Yes Eyes: Positive: Conjunctiva Clear ENT: Positive: Hearing grossly normal, Pharyngeal erythema, Nasal congestion, Nasal drainage, TM red - right erythematous TM. loss of light reflex and landmarks, Sinus tenderness - frontal and maxillary tenderness to palpation, Uvula midline. Negative: TM bulging, TM dull - r, Tonsillar swelling, Tonsillar exudate Neck exam: Normal Neck: Positive: Supple, No Lymphadenopathy, Tenderness @ - anterior cervical nodes. Negative: Nontender Respiratory Exam: Normal Respiratory: Positive: Lungs clear, Normal breath sounds, No respiratory distress, No accessory muscle use. Negative: Crackles, Rhonchi, Stridor, Wheezing Cardiovascular Exam: Normal Cardiovascular: Positive: RRR. Negative: Tachycardia Neurological: Positive: Alert Psychological: Positive: Age Appropriate Behavior Throat Pain/Nasal Course/Dx - Course Course Of Treatment: Discussed with patient that I am treating her with amoxicillin for bacterial sinusitis and acute otitis media. Instructed her to continue with nasal spray, otc decongestants, and otc analgesics from symptomatic relief. Patient voiced understanding and agreed to the treatment plan. - Differential Dx/Diagnosis Provider Diagnosis: Bacterial sinusitis, Acute otitis media, right Discharge ED - Sign-Out/Discharge Documenting (check all that apply): Patient Departure All imaging exams completed and their final reports reviewed: No Studies - Discharge Plan Condition: Stable Disposition: HOME Prescriptions: Amoxicillin PO (*) [Amoxicillin 875 MG (*)] 875 mg PO BID #14 tab Patient Education Materials: Sinusitis (ED) Referrals: Yasmeen Dowling MD [Primary Care Provider] - If Needed Additional Instructions: As discussed, take Amoxicillin for the treatment of your bacterial sinusitis and ear infection. You may also take Mucinex to help reduce mucus production. You may continue to use nasal spray as directed for symptomatic relief. You may take ibuprofen and tylenol as directed for pain relief. Get plenty of rest and fluids. Return or follow up with your primary care doctor if your symptoms worsen or do not resolve within 7 days. - Billing Disposition and Condition Condition: STABLE Disposition: Home
== END 2019-01-14 19:41 | disposition home or self-care (01) ==
LOC: UCEAST 18:20
DX: J32.9 Chronic sinusitis, unspecified (principal); H66.91 Otitis media, unspecified, right ear; J02.9 Acute pharyngitis, unspecified; H92.02 Otalgia, left ear; Z91.040 Latex allergy status; Z88.1 Allergy status to other antibiotic agents
CPT/HCPCS: 99202; G0463

== ENCOUNTER 2019-03-30 20:51 | Emergency (ER) | payer OTHER ==
[2019-03-30 21:02] VITALS: BP 147/77
--- NOTE | 2019-03-30 21:16 | UC ---
Throat Pain/Nasal Carlos HPI - HPI Summary HPI Summary: 48-year-old woman comes in with a chief complaint of upper respiratory tract infection symptoms for 4-5 days. Patient has yellow green rhinorrhea she has frontal sinus pressure. She has sore throat and left ear pain. No complaint of any shortness of breath. 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 - History of Current Complaint Chief Complaint: UCRespiratory Stated Complaint: EARACHE, SORE THROAT Time Seen by Provider: 03/30/19 21:04 Hx Last Menstrual Period: iud Pain Intensity: 6 - Allergies/Home Medications Allergies/Adverse Reactions: Allergies Allergy/AdvReac Type Severity Reaction Status Date / Time azithromycin Allergy Severe Anaphylatic Verified 03/30/19 21:02 [From Zithromax Z-Rigo] Shock latex Allergy Rash Verified 03/30/19 21:02 PMH/Surg Hx/FS Hx/Imm Hx Previously Healthy: Yes Respiratory History: Asthma - Surgical History Surgical History: Yes Surgery Procedure, Year, and Place: REPAIR FX LEFT FOOT AUGUST 2012 right knee surgery. 1997 BILATERAL TUBAL LIGATION, [facility]. WISDOM TEETH EXTRACTION, [facility]. 1994 PLACENTA EXTRACTION AFTER CHILDBIRTH[facility] HIATAL HERNIA REPAIR, [facility] 2003 OR 2004 LEFT HEEL SPUR, [facility]. 2004 RIGHT KNEE ARTHROSCOPY, [facility] - Family History Known Family History: Positive: Hypertension, Non-Contributory Negative: Cardiac Disease, Respiratory Disease - Social History Alcohol Use: Rare Substance Use Type: None Smoking Status (MU): Never Smoked Tobacco - Immunization History Most Recent Influenza Vaccination: Fall 2015 Review of Systems All Other Systems Reviewed And Are Negative: Yes Constitutional: Positive: Other - SEE HPI Skin: Positive: Negative Eyes: Positive: Negative ENT: Positive: Sore Throat, Ear Ache, Nasal Discharge, Sinus Congestion, Sinus Pain/Tenderness Respiratory: Positive: Cough Cardiovascular: Positive: Negative Gastrointestinal: Positive: Negative Motor: Positive: Negative Neurovascular: Positive: Negative Musculoskeletal: Positive: Negative Neurological: Positive: Negative Psychological: Positive: Negative Is Patient Immunocompromised?: No Physical Exam Triage Information Reviewed: Yes Appearance: No Pain Distress, Well-Nourished, Ill-Appearing - MILD Vital Signs: Initial Vital Signs Temp 98.2 F 03/30/19 20:58 Pulse 72 03/30/19 20:58 Resp 16 03/30/19 20:58 BP 147/77 03/30/19 20:58 Pulse Ox 100 03/30/19 20:58 Vital Signs Reviewed: Yes Eye Exam: Normal Eyes: Positive: Conjunctiva Clear ENT: Positive: Pharyngeal erythema, Nasal congestion, Nasal drainage, TMs normal , Sinus tenderness. Negative: Muffled voice, Hoarse voice Neck: Positive: Supple Respiratory: Positive: Lungs clear, Normal breath sounds, No respiratory distress Cardiovascular: Positive: RRR Musculoskeletal: Positive: Strength Intact, ROM Intact Neurological: Positive: Alert, Muscle Tone Normal Psychological: Positive: Normal Response To Family, Age Appropriate Behavior Skin Exam: Normal Throat Pain/Nasal Course/Dx - Course Course Of Treatment: DISCUSSED VIRAL VERSES BACTERIAL INFECTIONS AND THE ROLE OF ANTIBIOTICS. THE PATIENT PREFERS TO BE ON ANTIBIOTICS AT THIS TIME. - Differential Dx/Diagnosis Provider Diagnosis: Upper respiratory infection, Pharyngitis Discharge ED - Sign-Out/Discharge Documenting (check all that apply): Patient Departure All imaging exams completed and their final reports reviewed: No Studies - Discharge Plan Condition: Stable Disposition: HOME Prescriptions: Amoxicillin PO (*) [Amoxicillin 875 MG (*)] 875 mg PO BID #20 tab Patient Education Materials: Upper Respiratory Infection (ED), Pharyngitis (ED) Referrals: Yasmeen Dowling MD [Primary Care Provider] - Additional Instructions: FOLLOW UP WITH YOUR DOCTOR IF NOT COMPLETELY IMPROVED. GET REEVALUATED SOONER IF NOT IMPROVED OR WORSE OR ANY QUESTIONS OR CONCERNS. - Billing Disposition and Condition Condition: STABLE Disposition: Home
[2019-03-30] MEDS ORDERED: Amoxicillin PO (*) 500 MG CAP PO ONE (21:20)
== END 2019-03-30 21:44 | disposition home or self-care (01) ==
LOC: UCEAST 20:51
DX: J06.9 Acute upper respiratory infection, unspecified (principal); J02.9 Acute pharyngitis, unspecified; J45.909 Unspecified asthma, uncomplicated; Z88.1 Allergy status to other antibiotic agents; Z91.040 Latex allergy status
CPT/HCPCS: 87651; 99212; A9270-GY; G0463

== ENCOUNTER 2019-04-28 17:36 | Emergency (ER) | payer OTHER ==
--- OUTSIDE RECORDS SUMMARY | 2019-04-28 18:54 | XMS REPORT | Continuity of Care Document ---
:1970 External Reference #:[id number] Author Name Blake Flood M.D. (transmitted by agent of provider Alyse Teixeira) Address [address] [place] [id number] Care Team Providers Name Role Phone Sherri Smith MD - Internal Care Team Information Reexaminer Medicine Romina & Jose Physical Therapy Care Team Information Reexaminer [place] - Physical Therapist Yasmeen Dowling MD - Internal Care Team Information Reexaminer Medicine Problems Active Problems Provider Date Obesity [...] Patient has never smoked Smoking Status Reviewed: 04/17/19 Patient has never smoked Exercise Type/Frequency Exercises regularly walking every night Allergies, Adverse Reactions, Alerts Active Allergies Reaction Severity Comments Date Zithromax serum reaction hospitalized for days. 08/01/2007 Knotted up joints Latex 07/17/2013 Medications Active Medications SIG Qnty Indications Ordering Date Provider Fast Acting B12 sublingual daily 90tabs Blake Flood, 04/17/2019 M.D. 2500mcg Tablets Sub Neoprene Patella use daily with 2units M06.4 Blake Flood, 04/17/2019 Knee Support/Large walking for knee M.D. 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 108(90Base) day as needed mcg/Act Aerosol Fluoxetine HCL 1 by mouth every day 30caps F41.9 Cezar EArash 10/11/2016 Walter Blanco 10mg Capsules Ibuprofen prn Unknown 200mg Capsules One Daily multi vitamin daily Unknown Calcium 500 1 by mouth every day Unknown Tablets Flovent HFA 2 puff twice a day as 36gm Yasmeen Dowling, needed M.D. 220mcg/Act Aerosol Medications Administered in Office Medication SIG Qnty Indications Ordering Provider Date Depomedrol 40MG Sintia Petty M.D. 11/24/2018 Injection Depomedrol 40MG iSntia Petty M.D. 11/24/2018 Injection PPD Nurse Visit [place] 07/10/2011 Injection PPD Shayy Lin M.D. 07/10/2011 Injection PPD Anais Romeo PA 06/28/2009 Injection Immunizations CPT Code Status Date Vaccine Lot # [id number] Given 02/10/2015 Flu Vaccine Split Virus Preservative Free For Indiv 3Yr Older [id number] Given 01/10/2012 Fluzone Vaccine [id number] Given 02/08/2009 Influenza Virus Vaccine, Pandemic Formulation [id number] Given 02/08/2009 Administration Swine Flu Shot 51256 Given 01/18/2009 Influenza Virus 3Yrs & Over [id number] Vital Signs Date Vital Result Comment 04/17/2019 9:03am Height 65 inches 5'5" Weight 242.50 lb Heart Rate 75 /min BP Systolic 130 mmHg BP Diastolic 79 mmHg Body Temperature 98.0 F O2 % BldC Oximetry 99 % BMI (Body Mass Index) 40.3 kg/m2 11/24/2018 2:22pm Height 65 inches 5'5" Weight 238.00 lb Heart Rate 60 /min BP Systolic 126 mmHg BP Diastolic 82 mmHg BMI (Body Mass Index) 39.6 kg/m2 Results Test Acquired Date Facility Test Result H/L Range Note Laboratory test 03/30/2019 [facility] Rapid Strep Negative Negative [address] [address] [phone] Tariff Compiling Clerk: [id number] Suboptimal collection technique may reduce sensitivity of test. Refer to the [facility] Test Catalog for collection information: [email or web address] As with all diagnostic procedures, the laboratory results obtained should be used in conjunction with other clinical information available to the physician, including confirmation by another method, as applicable. Procedures Date Code Description Status 11/24/2018 96757 Injection, Carpal Tunnel Completed 04/07/2018 [id number] Mammogram Completed 10/30/2016 [id number] Mammogram Completed 10/11/2016 [id number] Mammogram Completed 08/01/2015 [id number] Mammogram Completed 07/28/2014 [id number] Mammogram Completed 07/17/2013 [id number] Mammogram Completed 05/30/2012 [id number] Mammogram Completed 09/16/2007 [id number] Mammogram Completed Medical Devices Description No Information Available Encounters Type Date Location Provider Dx Diagnosis Office Visit 10/20/2018 [facility] Vanda Little, G56.03 Carpal tunnel 1:30p at [place] RPA-C syndrome, bilateral upper limbs G56.23 Lesion of ulnar nerve, bilateral upper limbs R20.0 Anesthesia of skin R20.2 Paresthesia of skin Assessments Date Code Description Provider 04/17/2019 M06.4 Inflammatory polyarthropathy Blake Flood M.D. 04/17/2019 R20.8 Other disturbances of skin sensation Blake Flood M.D. 04/17/2019 M79.10 Myalgia, unspecified site Blake Flood M.D. 04/17/2019 M35.01 Sicca syndrome with keratoconjunctivitis Blake Flood M.D. 11/24/2018 G56.03 Carpal tunnel syndrome, bilateral upper limbs Sintia Petty M.D. 10/20/2018 G56.03 Carpal tunnel syndrome, bilateral upper limbs Vanda Bitting, RPA-C 10/20/2018 G56.23 Lesion of ulnar nerve, bilateral upper limbs Vanda Bitting, [facility] 10/20/2018 R20.0 Anesthesia of skin Vanda Bitting, [facility] 10/20/2018 R20.2 Paresthesia of skin Vanda Bitting, [facility] Plan of Treatment Future Appointment(s):05/22/2019 9:20 am - Blake Flood M.D. at [facility]04/17/2019 - Blake Flood M.D.M06.4 Inflammatory polyarthropathyNew Medication:Neoprene Patella Knee Support/Large - use daily with walking for knee support from chondromalacia patella 715.96 bilaterally right and leftR20.8 Other disturbances of skin skfeixkvqS53.10 Myalgia, unspecified siteM35.01 Sicca syndrome with keratoconjunctivitisFollow up:F/u in 3 to 4 weeks or sooner if needed Functional Status Description No Information Available Mental Status Description No Information Available Referrals Description No Information Available
[2019-04-28 19:18] VITALS: BP 158/82
[2019-04-28] MEDS ORDERED: HYDROcodone/ACETAMIN 5-325 MG* 1 TAB PO ONE (19:37)
[2019-04-28] MEDS ORDERED: Amoxicillin PO (*) 500 MG CAP PO ONE (19:38)
--- NOTE | 2019-04-28 19:48 | UC ---
Ear Complaint HPI - HPI Summary HPI Summary: The patient is a 48-year-old female with right ear pain 3 days. She has recent URI symptoms. She has no fever. Last night she was unable to sleep due to the pain. She has had a history of otitis media. Her hearing is diminished in her right ear. - History of Current Complaint Chief Complaint: UCRespiratory Stated Complaint: EAR PAIN Time Seen by Provider: 04/28/19 19:26 Hx Obtained From: Patient Hx Last Menstrual Period: iud Onset/Duration: Gradual Onset, Lasting Days Severity Initially: Severe Severity Currently: Severe Pain Intensity: 8 Pain Scale Used: 0-10 Numeric Aggravating Factors: Nothing Alleviating Factors: Nothing Associated Signs/Symptoms: Positive: Hearing Loss, URI Symptoms - Allergies/Home Medications Allergies/Adverse Reactions: Allergies Allergy/AdvReac Type Severity Reaction Status Date / Time azithromycin Allergy Severe Anaphylatic Verified 04/28/19 19:18 [From Zithromax Z-Rigo] Shock latex Allergy Rash Verified 04/28/19 19:18 Home Medications: Home Medications Ibuprofen TAB* [Advil TAB*] 600 mg PO Q5H PRN 04/28/19 [History Confirmed ] Multivitamin [Multivitamins] 1 each PO 04/28/19 [History] PMH/Surg Hx/FS Hx/Imm Hx Previously Healthy: Yes Endocrine History: Diabetes - pre Respiratory History: Asthma - Surgical History Surgical History: Yes Surgery Procedure, Year, and Place: REPAIR FX LEFT FOOT AUGUST 2012 right knee surgery. 1997 BILATERAL TUBAL LIGATION, [facility]. WISDOM TEETH EXTRACTION, [facility]. 1994 PLACENTA EXTRACTION AFTER CHILDBIRTH, [facility] [place] 2010 HIATAL HERNIA REPAIR, [facility] [place] 2003 OR 2004 LEFT HEEL SPUR, [facility] [place]. 2004 RIGHT KNEE ARTHROSCOPY, [facility] [place] - Family History Known Family History: Positive: Hypertension, Non-Contributory Negative: Cardiac Disease, Respiratory Disease - Social History Alcohol Use: Rare Substance Use Type: None Smoking Status (MU): Never Smoked Tobacco - Immunization History Most Recent Influenza Vaccination: Fall 2015 Review of Systems All Other Systems Reviewed And Are Negative: Yes Constitutional: Positive: Fatigue Skin: Positive: Negative Eyes: Positive: Negative ENT: Positive: Ear Ache, Nasal Discharge, Sinus Congestion Respiratory: Positive: Negative Cardiovascular: Positive: Negative Gastrointestinal: Positive: Negative Genitourinary: Positive: Negative Motor: Positive: Negative Neurovascular: Positive: Negative Musculoskeletal: Positive: Negative Neurological: Positive: Negative Psychological: Positive: Negative Physical Exam Triage Information Reviewed: Yes Appearance: Well-Appearing, No Pain Distress, Well-Nourished Vital Signs: Initial Vital Signs Temp 98.9 F 04/28/19 19:12 Pulse 81 04/28/19 19:12 Resp 18 04/28/19 19:12 BP 158/82 04/28/19 19:12 Pulse Ox 100 04/28/19 19:12 Eye Exam: Normal Eyes: Positive: Conjunctiva Clear ENT: Positive: Nasal congestion, TM bulging - R, TM dull - R, TM red - R, Uvula midline. Negative: Normal ENT inspection, Hearing grossly normal - decreased R , Nasal drainage, Tonsillar swelling, Tonsillar exudate, Muffled voice, Hoarse voice, Sinus tenderness Neck: Positive: Supple, Nontender, No Lymphadenopathy Respiratory: Positive: Lungs clear, Normal breath sounds, No respiratory distress Cardiovascular: Positive: RRR Musculoskeletal: Positive: ROM Intact, No Edema Neurological: Positive: Alert Psychological Exam: Normal Skin Exam: Normal Ear Complaint Course/Dx - Course Course Of Treatment: [facility] Reference #: [id number] - Differential Dx/Diagnosis Provider Diagnosis: Right otitis media, Elevated BP without diagnosis of hypertension Discharge ED - Sign-Out/Discharge Documenting (check all that apply): Patient Departure All imaging exams completed and their final reports reviewed: No Studies - Discharge Plan Condition: Stable Disposition: HOME Prescriptions: Amoxicillin PO (*) [Amoxicillin 875 MG (*)] 875 mg PO BID #20 tab Fluconazole 150 MG (NF) [Diflucan 150 mg (NF)] 150 mg PO ONCE #2 tab Patient Education Materials: Ear Infection (ED) Referrals: Yasmeen Dowling MD [Primary Care Provider] - 4 Days (if not improved recheck in 2-3 weeks if hearing not back to norrmal) Additional Instructions: ibuprofen Opioid-containing medications can cause drowsiness and sedation. You t should not drive or operate machinery or similar activities while taking this medication. Opioids can also cause a positive drug screen, and can be habit- forming. You should follow the instructions exactly and not take any extra medication. Opioid medications should be stored in a secure manner to avoid diversion or theft. You should not drink alcohol while taking these medications BP recheck at next office visit - Billing Disposition and Condition Condition: STABLE Disposition: Home
== END 2019-04-28 19:53 | disposition home or self-care (01) ==
LOC: UCEAST 17:36
DX: H66.91 Otitis media, unspecified, right ear (principal); R03.0 Elevated blood-pressure reading, without diagnosis of hypertension; J45.909 Unspecified asthma, uncomplicated; R53.83 Other fatigue; Z88.0 Allergy status to penicillin; Z91.040 Latex allergy status
CPT/HCPCS: 99212; A9270-GY; G0463

== ENCOUNTER 2019-06-13 17:14 | Emergency (ER) | payer OTHER ==
--- OUTSIDE RECORDS SUMMARY | 2019-06-13 17:20 | XMS REPORT | Continuity of Care Document ---
:1970 External Reference #:[id number] Author Name Blake Flood M.D. (transmitted by agent of provider Alyse Teixeira) Address [address] [place] [phone] Care Team Providers Name Role Phone Sherri Smith MD - Internal Care Team Information Interrelated Special Education Teacher [phone] Medicine Romina & Jose Physical Therapy Care Team Information Interrelated Special Education Teacher [place] - Physical Therapist Yasmeen Dowling MD - Internal Care Team Information Interrelated Special Education Teacher [phone] Medicine Problems Active Problems Provider Date Obesity [...] Patient has never smoked Smoking Status Reviewed: 05/22/19 Patient has never smoked Exercise Type/Frequency Exercises regularly walking every night Allergies, Adverse Reactions, Alerts Active Allergies Reaction Severity Comments Date Zithromax serum reaction hospitalized for days. 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 715.96 bilaterally right and left Ventolin HFA inhale 2 puffs by 18units Yasmeen 108(90Base) mouth four times a Walter Dowling 9 mcg/Act Aerosol day as needed Fluoxetine HCL 1 by mouth every 30caps F41.9 Cezar Gillespie 10mg Capsules day Walter Blanco 7 Ibuprofen prn Unknown 200mg Capsules 0 One Daily multi vitamin daily Unknown 0 Calcium 500 1 by mouth every Unknown Tablets day 0 Flovent HFA 2 puff twice a day 36gm Yasmeen 220mcg/Act as needed Walter Dowling 0 Aerosol Aspirin 81 1 by mouth every Unknown 81mg Tablets DR day 0 Medications Administered in Office Medication SIG Qnty Indications Ordering Provider Date Depomedrol 40MG Sintia Block M.D. 11/24/2018 Injection Depomedrol 40MG Sintia Block M.D. 11/24/2018 Injection PPD Nurse Visit [place] 07/10/2011 Injection PPD Shayy Lin M.D. 07/10/2011 Injection PPD Anais Romeo PA 06/28/2009 Injection Immunizations CPT Code Status Date Vaccine Lot # [id number] Given 04/22/2019 Influenza Virus Vaccine, Quadrivalent, Split, Preservative Free 40326 Given 02/10/2015 Flu Vaccine Split Virus Preservative Free For Indiv 3Yr Older Q2038 Given 01/10/2012 Fluzone Vaccine [id number] Given 02/08/2009 Influenza Virus Vaccine, Pandemic Formulation [id number] 24301 Given 02/08/2009 Administration Swine Flu Shot 46258 Given 01/18/2009 Influenza Virus 3Yrs & Over [id number] Vital Signs Date Vital Result Comment 05/22/2019 9:14am Height 65 inches 5'5" Weight 242.00 lb Heart Rate 68 /min BP Systolic 148 mmHg BP Diastolic 88 mmHg Body Temperature 97.4 F Pain Level 5 O2 % BldC Oximetry 98 % BMI (Body Mass Index) 40.3 kg/m2 05/06/2019 10:49am Height 65 inches 5'5" Weight 243.00 lb Heart Rate 56 /min BP Systolic 150 mmHg BP Diastolic 90 mmHg Respiratory Rate 18 /min Pain Level 8 BMI (Body Mass Index) 40.4 kg/m2 Results Test Acquired Date Facility Test Result H/L Range Note Celiac Panel 04/17/2019 [facility] Tissue <1.2 U/mL [address] [address] Ab [phone] Immunoglobulin A 193 mg/dL 61 - 356 Celiac Interpretation See Comment 2 Celiac Hla 04/17/2019 [facility] [id number] SEE BELOW [address] [place] [address] [phone] [id number] SEE BELOW 4 Celiac Gene Pairs Present? Yes Celiac Gene Interpretation See Comment 5 Immunoglobulins 04/17/2019 [facility] Immunoglobulin G 1080 767 - 6 Serum Quant [address] mg/dL 1590 [place] [address] [phone] Immunoglobulin M 272 mg/dL 37 - 286 Immunoglobulin A 200 mg/dL 61 - 356 Ssa/SSB Abs Igg 04/17/2019 [facility] SS-A/Ro Antibody <0.2 U [address] [place] [address] [phone] SS-B/La Antibody <0.2 U 8 Laboratory test 04/17/2019 [facility] C Reactive 9.66 mg/L High <8.01 [address] [place] [address] [phone] Anca AB Ser If 04/17/2019 [facility] C-Anca Negative Negative [address] [place] [address] [phone] P-Anca Negative Negative 10 Laboratory test 04/17/2019 [facility] Creatine 58 U/L Normal 10-[address] [facility] Kinase(CK) [place] [address] [phone] Vitamin D Total 25(Oh) 22.3 ng/mL Normal 20-50 12 TSH (Thyroid Stim Horm) 1.78 mcIU/mL Normal 0.34-5.60 13 Thyroperoxidase AB 0.23 IU/mL Normal <9 14 Angiotensin Converting Enzyme 19 U/L 16 - 85 15 Laboratory test 03/30/2019 [facility] Rapid Strep Negative Negative [address] [facility] [place] [address] [phone] 1 REFERENCE VALUE <4.0 (Negative) Test Performed by: [facility] [place] [address] Salesperson [employer]: Ciaran Trevino M.D. Ph.D.; CLIA# [id number] 2 Negative serology. Celiac disease unlikely. However, approximately 10% of patients with celiac disease are seronegative. Also, patients who are already adhering to a gluten-free diet may be seronegative. If celiac disease is highly clinically suspected, consider HLA-DQ typing. Test Performed by: [facility] [place] [address] Salesperson [employer]: Ciaran Trevino M.D. Ph.D.; CLIA# [id number] 3 RESULT: ,05:01 REFERENCE VALUE Not Applicable 4 RESULT: 02:01,05:01 DQ Serologic Equivalent: 2,5 REFERENCE VALUE Not Applicable 5 These genes are permissive for celiac disease. The absence of HLA celiac permissive genes would make the presence of celiac disease unlikely. However, these genes can also be present in the normal population. ADDITIONAL INFORMATION Method: Molecular typing of HLA antigens performed using reverse SSOP and/or SSP methods, reported as serological equivalents and low to medium resolution molecular values. Test Performed by: [place] [id number] [employer]person [employer]: Ciaran Trevino M.D. Ph.D.; CLIA# [id number] 6 Test Performed by: [place] [address] Salesperson [employer]: Ciaran Trevino M.D. Ph.D.; CLIA# [id number] 7 REFERENCE VALUE <1.0 (Negative) 8 REFERENCE VALUE <1.0 (Negative) Test Performed by: [facility] [place] [address] Salesperson [employer]: Ciaran Trevino M.D. Ph.D.; CLIA# [id number] 9 Please check labs today 10 Negative for cANCA and pANCA patterns by immunofluorescence. ADDITIONAL INFORMATION This test was developed and its performance characteristics determined by [facility] in a manner consistent with CLIA requirements. This test has not been cleared or approved by the U.S. Food and Drug Administration. Test Performed by: [address] [place] [address] Salesperson [employer]: Ciaran Trevino M.D. Ph.D.; CLIA# [id number] 11 Please check labs today 12 Total 25-Hydroxyvitamin D2 and D3 (25-OH-VitD) <10 ng/mL (severe deficiency) 10-19 ng/mL (mild to moderate deficiency) 20-50 ng/mL (optimum levels) 51-80 ng/mL (increased risk of hypercalciuria) >80 ng/mL (toxicity possible) 13 Please check labs today 14 Please check labs today 15 Test Performed by: [place] [id number] [employer]: Ciaran Trevino M.D. Ph.D.; CLIA# [id number] 16 Can Reconditioner: [id number] Suboptimal collection technique may reduce sensitivity of test. Refer to the [facility] Test Catalog for collection information: [email or web address] As with all diagnostic procedures, the laboratory results obtained should be used in conjunction with other clinical information available to the physician, including confirmation by another method, as applicable. Procedures Date Code Description Status 11/24/2018 95168 Injection, Carpal Tunnel Completed 04/07/2018 [id number] Mammogram Completed 10/30/2016 [id number] Mammogram Completed 10/11/2016 [id number] Mammogram Completed 08/01/2015 [id number] Mammogram Completed 07/28/2014 [id number] Mammogram Completed 07/17/2013 [id number] Mammogram Completed 05/30/2012 [id number] Mammogram Completed 09/16/2007 [id number] Mammogram Completed Medical Devices Description No Information Available Encounters Type Date Location Provider Dx Diagnosis Office Visit 05/22/2019 Rheumatology Blake Flood, M05.79 [place] arthritis w 9:20a [facility] factor mult site w/o org/sys involv Z79.899 Other retirement (current) drug therapy R79.82 Elevated C-reactive protein (CRP) R76.0 Raised antibody titer G47.30 Sleep apnea, unspecified Office Visit 05/06/2019 10:30a [facility] G56.01 Carpal tunnel at Keny Bautista MD syndrome, right upper limb G56.21 Lesion of ulnar nerve, right upper limb Office Visit 04/17/2019 Rheumatology Blake M06.4 Inflammatory 9:00a [facility] M.D. polyarthropathy R20.8 Other disturbances of skin sensation M79.10 Myalgia, unspecified site M35.01 Sicca syndrome with keratoconjunctivitis K30 Functional dyspepsia M79.7 Fibromyalgia Assessments Date Code Description Provider 05/22/2019 M05.79 Rheumatoid arthritis with rheumatoid factor Blake Flood M.D. of multiple sites without organ or systems involvement 05/22/2019 Z79.899 Other retirement (current) drug therapy Blake Flood M.D. 05/22/2019 R79.82 Elevated C-reactive protein (CRP) Blake Flood M.D. 05/22/2019 R76.0 Raised antibody titer Blake Flood M.D. 05/22/2019 G47.30 Sleep apnea, unspecified Blake Flood M.D. 05/06/2019 G56.01 Carpal tunnel syndrome, right upper limb Que Bautista MD 05/06/2019 G56.21 Lesion of ulnar nerve, right upper limb Que Bautista MD 04/17/2019 M06.4 Inflammatory polyarthropathy Blake Flood M.D. 04/17/2019 R20.8 Other disturbances of skin sensation Blake Flood M.D. 04/17/2019 M79.10 Myalgia, unspecified site Blake Flood M.D. 04/17/2019 M35.01 Sicca syndrome with keratoconjunctivitis Blake Flood M.D. 04/17/2019 K30 Functional dyspepsia Blake Flood M.D. 04/17/2019 M79.7 Fibromyalgia Blake Flood M.D. 11/24/2018 G56.03 Carpal tunnel syndrome, bilateral upper Sintia Block M.D. limbs Plan of Treatment Future Appointment(s):07/31/2019 10:20 am - Blake Flood M.D. at [facility]07/14/2019 8:00 am - Que Bautista MD at [facility] at Prfhty5107/30/2019 11:45 am - Que Bautista MD at [facility] at [id number]/22/2019 - Blake Flood M.D.M05.79 Rheumatoid arthritis with rheumatoid factor of multiple sites without organ or systems involvementNew Medication:Hydroxychloroquine Sulfate 200 mg - Take one capsule/tablet daily by mouth for 1 week then 2 daily tabs ongoingFollow up:Follow up in 6 to 8 weeks or sooner if imovxrL33.899 Other retirement (current) drug pdpiengC29.82 Elevated C-reactive protein (CRP)R76.0 Raised antibody titerReferral:Asha Gonzalez Karen C., MD, GastroenterologyFollow up:Follow up in 2 months or sooner if xakypwM59.30 Sleep apnea, unspecifiedReferral:[facility], Sleep Disord,Diag/Clinic Functional Status Description No Information Available Mental Status Description No Information Available Referrals Refer to Reason for Referral Status Appt Date Oneal [place]ers Please monitor for Plaquenil toxicity [address] [place] [address] [phone] Sherley Vazquez MD Please evaluate and screen for celiac disease in Created patient with positive celiac genetic test and GI symptoms [address] [place] [address] [phone] [facility] Please eval for sleep apnea [address] [place] [address] [phone]
--- OUTSIDE RECORDS SUMMARY | 2019-06-13 17:20 | XMS REPORT | Continuity of Care Document ---
:1970 External Reference #:[id number] Author Name Que Bautista MD (transmitted by agent of provider Veronica Pantoja) Address [address] [place] [id number] Care Team Providers Name Role Phone Sherri Smith MD - Internal Care Team Information [facility] Care Team Information Ward Maid [place] - Physical Therapist Yasmeen Dowling MD - Internal Care Team Information [facility] Problems Active Problems Provider Date Obesity [...] Patient has never smoked Smoking Status Reviewed: 05/06/19 Patient has never smoked Exercise Type/Frequency Exercises [...] Support/Large walking for knee [place] [facility] [place]ella 715.96 bilaterally right and left Ventolin HFA inhale 2 puffs by 18units Yasmeen Dowling, 2018 mouth four times a M.D. 108(90Base) day as needed mcg/Act Aerosol Fluoxetine HCL 1 by mouth every day 30caps F41.9 Cezar Gillespie 10/11/2016 Walter Blanco 10mg Capsules Ibuprofen prn Unknown 200mg Capsules One Daily multi vitamin daily Unknown Calcium 500 1 by mouth every day Unknown Tablets Flovent HFA 2 puff twice a day as 36gm Yasmeen Dowling, needed M.DArash 220mcg/Act Aerosol Medications Administered in Office Medication SIG Qnty Indications Ordering Provider Date Depomedrol 40MG Sintia Block M.D. 11/24/2018 Injection Depomedrol 40MG Sintia Block M.D. 11/24/2018 Injection PPD Nurse Visit [place] 07/10/2011 Injection PPD Shayy Lin M.D. 07/10/2011 Injection PPD Anais Romeo PA 06/28/2009 Injection Immunizations CPT Code Status Date Vaccine Lot # [id number] Given 04/22/2019 Influenza Virus Vaccine, Quadrivalent, Split, Preservative Free 39136 Given 02/10/2015 Flu Vaccine Split Virus Preservative Free For Indiv 3Yr Older [id number] Given 01/10/2012 Fluzone Vaccine [id number] Given 02/08/2009 Influenza Virus Vaccine, Pandemic Formulation [id number] 21722 Given 02/08/2009 Administration Swine Flu Shot 74722 Given 01/18/2009 Influenza Virus 3Yrs & Over [id number] Vital Signs Date Vital Result Comment 05/06/2019 10:49am Height 65 inches 5'5" Weight 243.00 lb Heart Rate 56 /min BP Systolic 150 mmHg BP Diastolic 90 mmHg Respiratory Rate 18 /min Pain Level 8 BMI (Body Mass Index) 40.4 kg/m2 04/17/2019 9:03am Height 65 inches 5'5" Weight 242.50 lb Heart Rate 75 /min BP Systolic 130 mmHg BP Diastolic 79 mmHg Body Temperature 98.0 F O2 % BldC Oximetry 99 % BMI (Body Mass Index) 40.3 kg/m2 Results Test Acquired Date Facility Test Result H/L Range Note Celiac Panel 04/17/2019 [facility] Tissue <1.2 U/mL [address] [place] [address] Ab [phone] Immunoglobulin A 193 mg/dL 61 - 356 Celiac Interpretation See Comment 2 Celiac Hla 04/17/2019 [facility] Hla-Dqa1 SEE BELOW [address] [place] [address] [phone] Hla-DQB1 SEE BELOW 4 Celiac Gene Pairs Present? Yes Celiac Gene Interpretation See Comment 5 Immunoglobulins 04/17/2019 [facility] Immunoglobulin G 1080 767 - [address] mg/dL [address] [place] [address] [phone] Immunoglobulin M 272 mg/dL 37 - 286 Immunoglobulin A 200 mg/dL 61 - 356 Ssa/SSB Abs Igg 04/17/2019 [facility] SS-A/Ro Antibody <0.2 U [address] [place], [place] [address] [phone] SS-B/La Antibody <0.2 U 8 Laboratory test 04/17/2019 [facility] C Reactive 9.66 mg/L High <8.[address] Protein [place], [place] [address] [phone] Anca AB Ser If 04/17/2019 [facility] C-Anca Negative Negative [address] [place], [place] [address] [phone] P-Anca Negative Negative 10 Laboratory test 04/17/2019 [facility] Creatine 58 U/L Normal 10-[address] Kinase(CK) [place] [address] [phone] Vitamin D Total 25(Oh) 22.3 ng/mL Normal 20-50 12 TSH (Thyroid Stim Horm) 1.78 mcIU/mL Normal 0.34-5.60 13 Thyroperoxidase AB 0.23 IU/mL Normal <9 14 Angiotensin Converting Enzyme 19 U/L 16 - 85 15 Laboratory test 03/30/2019 [facility] Rapid Strep Negative Negative [address] [place] [address] [phone] 1 REFERENCE VALUE <4.0 (Negative) Test Performed by: [facility] [place] [address] Stereo Equipment Installer: Ciaran Trevino M.D. Ph.D.; CLIA# [id number] 2 Negative serology. Celiac disease unlikely. However, approximately 10% of patients with celiac disease are seronegative. Also, patients who are already adhering to a gluten-free diet may be seronegative. If celiac disease is highly clinically suspected, consider HLA-DQ typing. Test Performed by: [facility] [place] [address] Stereo Equipment Installer: Ciaran Trevino M.D. Ph.D.; CLIA# [id number] 3 RESULT: ,05:01 REFERENCE VALUE Not Applicable [...] medium resolution molecular values. Test Performed by: [facility] - [address] [address] Stereo Equipment Installer: Ciaran Trevino M.D. Ph.D.; CLIA# [id number] 6 Test Performed by: [facility] [place] [address] Stereo Equipment Installer: Ciaran Trevino M.D. Ph.D.; CLIA# [id number] 7 REFERENCE VALUE <1.0 (Negative) 8 REFERENCE VALUE <1.0 (Negative) Test Performed by: [facility] [place] [address] Stereo Equipment Installer: Ciaran Trevino M.D. Ph.D.; CLIA# [id number] 9 Please check labs today 10 Negative for cANCA and pANCA patterns by immunofluorescence. ADDITIONAL INFORMATION This test was developed and its performance characteristics determined by [facility] in a manner consistent with CLIA requirements. This test has not been cleared or approved by the U.S. Food and Drug Administration. Test Performed by: [facility] [place] [address] Stereo Equipment Installer: Ciaran Trevino M.D. Ph.D.; CLIA# [id number] 11 Please check labs today 12 Total 25-Hydroxyvitamin D2 and D3 (25-OH-VitD) <10 ng/mL (severe deficiency) 10-19 ng/mL (mild to moderate deficiency) 20-50 ng/mL (optimum levels) 51-80 ng/mL (increased risk of hypercalciuria) >80 ng/mL (toxicity possible) 13 Please check labs today 14 Please check labs today 15 Test Performed by: [address] [address] Stereo Equipment Installer: Ciaran Trevino M.D. Ph.D.; CLIA# [id number] 16 Steam Shovel Oiler: [id number] Suboptimal collection technique may reduce sensitivity of test. Refer to the [employer] Test Catalog for collection information: [email or web address] As with all diagnostic procedures, the laboratory results obtained should be used in conjunction with other clinical information available to the physician, including confirmation by another method, as applicable. Procedures Date Code Description Status 11/24/2018 Injection, Carpal Tunnel Completed 04/07/2018 [id number] Mammogram Completed 10/30/2016 [id number] Mammogram Completed 10/11/2016 [id number] Mammogram Completed 08/01/2015 [id number] Mammogram Completed 07/28/2014 [id number] Mammogram Completed 07/17/2013 [id number] Mammogram Completed 05/30/2012 [id number] Mammogram Completed 09/16/2007 [id number] Mammogram Completed Medical Devices Description No Information Available Encounters Type Date Location Provider Dx Diagnosis Office Visit 04/17/2019 Rheumatology Blake Flood, M06.4 Inflammatory 9:00a [facility] polyarthropathy R20.8 Other disturbances of skin sensation M79.10 Myalgia, unspecified site M35.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 limbs Plan of Treatment Future Appointment(s):05/22/2019 9:20 am - Blake Flood M.D. at [facility]05/06/2019 - Que Bautista MDG56.03 Carpal tunnel syndrome, bilateral upper limbsFollow up:Follow up: 7-10 days before wavrnefR20.23 Lesion of ulnar nerve, bilateral upper limbs Functional Status Description No Information Available Mental Status Description No Information Available Referrals Description No Information Available
--- OUTSIDE RECORDS SUMMARY | 2019-06-13 17:20 | XMS REPORT | Continuity of Care Document ---
:1970 External Reference #:[id number] Author Name Blake Flood M.D. (transmitted by agent of provider Alyse Teixeira) Address [address] [place] [phone] Care Team Providers Name Role Phone Sherri Smith MD - Internal Care Team Information Motor Vehicle Technician Medicine [facility] Care Team Information Motor Vehicle Technician [phone] [place] - Physical Therapist Yasmeen Dowling MD - Internal Care Team Information Motor Vehicle Technician Medicine Problems Active Problems Provider Date Obesity [...] Block M.D. 11/24/2018 Injection PPD Nurse Visit [place] 07/10/2011 Injection PPD Shayy Lin M.D. 07/10/2011 Injection PPD Anais Romeo PA 06/28/2009 Injection Immunizations CPT Code Status Date Vaccine Lot # [id number] Given 04/22/2019 Influenza Virus Vaccine, Quadrivalent, Split, Preservative Free 16467 Given 02/10/2015 Flu Vaccine Split Virus Preservative Free For Indiv 3Yr Older Q2038 Given 01/10/2012 Fluzone Vaccine [id number] 01905 Given 02/08/2009 Influenza Virus Vaccine, Pandemic Formulation [id number] 86962 Given 02/08/2009 Administration Swine Flu Shot 08716 Given 01/18/2009 Influenza Virus 3Yrs & Over [id number] Vital Signs Date Vital Result Comment 05/22/2019 [...] Result H/L Range Note Celiac Panel 04/17/2019 [facility] Tissue <1.2 U/mL [address] [place] [address] Ab [phone] Immunoglobulin A 193 mg/dL 61 - 356 Celiac Interpretation See Comment 2 Celiac Hla 04/17/2019 [facility] Hla-Dqa1 SEE BELOW [address] [place] [address] [phone] Hla-DQB1 SEE BELOW 4 Celiac Gene Pairs Present? Yes Celiac Gene Interpretation See Comment 5 Immunoglobulins 04/17/2019 [facility] Immunoglobulin G 1080 767 - 6 Serum Quant [address] mg/dL 15[address] [place] [address] [phone] Immunoglobulin M 272 mg/dL 37 - 286 Immunoglobulin A 200 mg/dL 61 - 356 Ssa/SSB Abs Igg 04/17/2019 [facility] SS-A/Ro Antibody <0.2 U [address] [place] [address] [phone] SS-B/La Antibody <0.2 U 8 Laboratory test 04/17/2019 [facility] C Reactive 9.66 mg/L High <8.01 [address] [place] [address] [phone] Anca AB Ser If 04/17/2019 [facility] C-Anca Negative Negative [address] [place] [address] [phone] P-Anca Negative Negative 10 Laboratory test 04/17/2019 [facility] Creatine 58 U/L Normal 10-223 11 finding [facility] Kinase(CK) [place] [address] [phone] Vitamin D Total 25(Oh) 22.3 ng/mL Normal 20-50 12 TSH (Thyroid Stim Horm) 1.78 mcIU/mL Normal 0.34-5.60 13 Thyroperoxidase AB 0.23 IU/mL Normal <9 14 Angiotensin Converting Enzyme 19 U/L 16 - 85 15 Laboratory test 03/30/2019 [facility] Rapid Strep Negative Negative 16 finding [address] [facility] [place] [address] [phone] 1 REFERENCE VALUE <4.0 (Negative) Test Performed by: [place] [address] Travel Sales Consultant: Ciaran Trevino M.D. Ph.D.; CLIA# [id number] 2 Negative serology. Celiac disease unlikely. However, approximately 10% of patients with celiac disease are seronegative. Also, patients who are already adhering to a gluten-free diet may be seronegative. If celiac disease is highly clinically suspected, consider HLA-DQ typing. Test Performed by: [facility] [address] Travel Sales Consultant: Ciaran Trevino M.D. Ph.D.; CLIA# [id number] 3 RESULT: ,05:01 REFERENCE VALUE Not Applicable [...] medium resolution molecular values. Test Performed by: [place] [id number] Travel Sales Consultant: Ciaran Trevino M.D. Ph.D.; CLIA# [id number] 6 Test Performed by: [place] [address] Travel Sales Consultant: Ciaran Trevino M.D. Ph.D.; CLIA# [id number] 7 REFERENCE VALUE <1.0 (Negative) 8 REFERENCE VALUE <1.0 (Negative) Test Performed by: [place] [address] Travel Sales Consultant: Ciaran Trevino M.D. Ph.D.; CLIA# [id number] 9 Please check labs today 10 Negative for cANCA and pANCA patterns by immunofluorescence. ADDITIONAL INFORMATION This test was developed and its performance characteristics determined by [facility] in a manner consistent with CLIA requirements. This test has not been cleared or approved by the U.S. Food and Drug Administration. Test Performed by: [address] [place] [address] Travel Sales Consultant: Ciaran Trevino M.D. Ph.D.; CLIA# [id number] 11 Please check labs today 12 Total 25-Hydroxyvitamin D2 and D3 (25-OH-VitD) <10 ng/mL (severe deficiency) 10-19 ng/mL (mild to moderate deficiency) 20-50 ng/mL (optimum levels) 51-80 ng/mL (increased risk of hypercalciuria) >80 ng/mL (toxicity possible) 13 Please check labs today 14 Please check labs today 15 Test Performed by: [place] [id number] Travel Sales Consultant: Ciaran Trevino M.D. Ph.D.; CLIA# [id number] 16 Offal Icer Poultry: [id number] Suboptimal collection technique may reduce sensitivity of test. Refer to the [employer] Test Catalog for collection information: [email or web address] As with all diagnostic procedures, the laboratory results obtained should be used in conjunction with other clinical information available to the physician, including confirmation by another method, as applicable. Procedures Date Code Description Status 11/24/2018 31890 Injection, Carpal Tunnel Completed 04/07/2018 [id number] Mammogram Completed 10/30/2016 [id number] Mammogram Completed 10/11/2016 [id number] Mammogram Completed 08/01/2015 [id number] Mammogram Completed 07/28/2014 [id number] Mammogram Completed 07/17/2013 [id number] Mammogram Completed 05/30/2012 [id number] Mammogram Completed 09/16/2007 [id number] Mammogram Completed Medical Devices Description No Information Available Encounters Type Date Location Provider Dx Diagnosis Office Visit 05/22/2019 Rheumatology Blake Flood, M05.79 [place] arthritis w 9:20a [facility] factor mult site w/o org/sys involv Z79.899 Other longterm (current) drug therapy R79.82 Elevated C-reactive protein (CRP) R76.0 Raised antibody titer G47.30 Sleep apnea, unspecified Office Visit 05/06/2019 10:30a [facility] Que G56.01 Carpal tunnel at [place] [...] organ or systems involvement 05/22/2019 Z79.899 Other longterm (current) drug therapy Blake Flood M.D. 05/22/2019 [...] Blake Flood M.D. at [facility]07/14/2019 8:00 am - Que Bautista MD at [facility] at Hpnybw6807/30/2019 11:45 am - Que Bautista MD at [facility] at Crzeyo4905/22/2019 - Blake Flood M.D.M05.79 Rheumatoid arthritis with rheumatoid factor of multiple sites without organ or systems involvementNew Medication:Hydroxychloroquine Sulfate 200 mg - Take one capsule/tablet daily by mouth for 1 week then 2 daily tabs ongoingFollow up:Follow up in 6 to 8 weeks or sooner if ulueiwK45.899 Other longterm (current) drug hkdogfeG24.82 Elevated C-reactive protein (CRP)R76.0 Raised antibody titerReferral:Asha Gonzalez Karen C., MD, GastroenterologyFollow up:Follow up in 2 months or sooner if rilgjxQ98.30 Sleep apnea, unspecifiedReferral:[facility] Sleep [facility], Sleep Disord,Diag/Clinic Functional Status Description No Information Available Mental Status Description No Information Available Referrals Refer to Reason for Referral Status Appt Date Oneal Meyers Please monitor for Plaquenil toxicity Sent [address] [place] [address] [phone] Sherley Vazquez MD Please evaluate and screen for celiac disease in Created patient with positive celiac genetic test and GI symptoms [address] [place] [address] [phone] [facility] Sleep Clinic Please eval for sleep apnea Sent [address] [place] [address] [phone]
[2019-06-13 17:22] VITALS: BP 139/71
--- NOTE | 2019-06-13 17:35 | UC ---
Skin Complaint HPI - HPI Summary HPI Summary: 3 days of itchy red hives worse under abdomen and on thighs---only new exposure is to plaquenil began about 2 weeks ago for RA---patient is taking benadryl with out much relief--no respiratory symptoms - History of Current Complaint Chief Complaint: UCRash Time Seen by Provider: 06/13/19 17:24 Stated Complaint: ALLERGIC REACTION / BODY HIVES Hx Obtained From: Patient Hx Last Menstrual Period: IUD ?: No Onset/Duration: Sudden Onset, Lasting Days - 3, Still Present Timing: Constant Pain Intensity: 6 Pain Scale Used: 0-10 Numeric Location: Diffuse Character: Redness, Raised Aggravating Factor(s): Other - heat Alleviating Factor(s): Nothing Associated Signs & Symptoms: Positive: Rash Related History: Recent change in medication - Allergy/Home Medications Allergies/Adverse Reactions: Allergies Allergy/AdvReac Type Severity Reaction Status Date / Time azithromycin Allergy Severe Anaphylatic Verified 06/13/19 17:23 [From Zithromax Z-Rigo] Shock latex Allergy Rash Verified 06/13/19 17:23 Home Medications: Home Medications Albuterol HFA INHALER* [Ventolin HFA Inhaler*] 1 puff INH Q4H PRN #1 mdi [Rx Confirmed 06/13/19] FLUoxetine CAP* [Prozac CAP*] 10 mg PO DAILY 08/21/17 [History Confirmed ] Fluticasone HFA 220 mcg(NF) [Flovent HFA 220 Mcg(NF)] 1 puff INH BID 06/04/18 [ History Confirmed 06/13/19] Fluconazole 150 MG (NF) [Diflucan 150 mg (NF)] 150 mg PO ONCE #2 tab 04/28/19 [ Rx Confirmed 06/13/19] Ibuprofen TAB* [Advil TAB*] 600 mg PO Q5H PRN 04/28/19 [History Confirmed ] Multivitamin [Multivitamins] 1 each PO DAILY 04/28/19 [History Confirmed ] predniSONE 50 mg TAB [Deltasone 50 mg TAB] 50 mg PO DAILY #5 tab 06/13/19 [Rx] PMH/Surg Hx/FS Hx/Imm Hx Previously Healthy: No - RA Respiratory History: Asthma Psychological History: Depression - Surgical History Surgical History: Yes Surgery Procedure, Year, and Place: REPAIR FX LEFT FOOT AUGUST 2012 right knee surgery. 1997 BILATERAL TUBAL LIGATION, [facility]. WISDOM TEETH EXTRACTION, [facility]. 1994 PLACENTA EXTRACTION AFTER CHILDBIRTH[facility] 2010 HIATAL HERNIA REPAIR, [facility] 2003 OR 2004 LEFT HEEL SPUR, [facility]. 2004 RIGHT KNEE ARTHROSCOPY, [facility] - Family History Known Family History: Positive: Hypertension, Non-Contributory Negative: Cardiac Disease, Respiratory Disease - Social History Occupation: Employed Full-time Lives: With Family Alcohol Use: Rare Substance Use Type: None Smoking Status (MU): Never Smoked Tobacco - Immunization History Most Recent Influenza Vaccination: Fall 2015 Review of Systems All Other Systems Reviewed And Are Negative: Yes Constitutional: Positive: Negative Skin: Positive: Rash - hives Eyes: Positive: Negative ENT: Positive: Negative Respiratory: Positive: Negative Cardiovascular: Positive: Negative Gastrointestinal: Positive: Negative Genitourinary: Positive: Negative Motor: Positive: Negative Neurovascular: Positive: Negative Musculoskeletal: Positive: Negative Neurological/Mental Status: Positive: Negative Psychological: Positive: Negative Is Patient Immunocompromised?: No Physical Exam Triage Information Reviewed: Yes Appearance: Well-Appearing, No Pain Distress, Well-Nourished Vital Signs: Initial Vital Signs Temp 97.5 F 06/13/19 17:19 Pulse 90 06/13/19 17:19 Resp 16 06/13/19 17:19 BP 139/71 06/13/19 17:19 Pulse Ox 99 06/13/19 17:19 Vital Signs Reviewed: Yes Eye Exam: Normal Eyes: Positive: Conjunctiva Clear ENT Exam: Normal ENT: Positive: Normal ENT inspection, Hearing grossly normal, Pharynx normal. Negative: Nasal congestion, Trismus, Muffled voice, Hoarse voice Dental Exam: Normal Neck exam: Normal Neck: Positive: Supple, Nontender Respiratory Exam: Normal Respiratory: Positive: Chest non-tender, Lungs clear, Normal breath sounds, No respiratory distress, No accessory muscle use Cardiovascular Exam: Normal Cardiovascular: Positive: RRR, No Murmur, Pulses Normal, Brisk Capillary Refill Musculoskeletal Exam: Normal Musculoskeletal: Positive: Strength Intact, ROM Intact, No Edema Neurological Exam: Normal Neurological: Positive: Alert, Muscle Tone Normal Psychological Exam: Normal Skin: Positive: Rashes - hives generalized Course/Dx - Course Course Of Treatment: continue Benadryl add prednisone---hold plaquinel call Dr Flood on Saturday to discuss further dosing---cool compress and keep skin fold seperated as much as possible - Diagnoses Provider Diagnosis: Allergic urticaria Discharge ED - Sign-Out/Discharge Documenting (check all that apply): Patient Departure All imaging exams completed and their final reports reviewed: No Studies - Discharge Plan Condition: Stable Disposition: HOME Prescriptions: predniSONE 50 mg TAB [Deltasone 50 mg TAB] 50 mg PO DAILY #5 tab Patient Education Materials: Diphenhydramine (By mouth), Urticaria (ED), General Allergic Reaction (ED) Referrals: Blake Flood MD [Medical Doctor] - 2 Days (to discuss further medications to treat RA) - Billing Disposition and Condition Condition: STABLE Disposition: Home
== END 2019-06-13 17:45 | disposition home or self-care (01) ==
LOC: UCEAST 17:14
DX: L50.0 Allergic urticaria (principal); J45.909 Unspecified asthma, uncomplicated; F32.9 Major depressive disorder, single episode, unspecified; Z88.1 Allergy status to other antibiotic agents; Z91.040 Latex allergy status; Z79.51 Long term (current) use of inhaled steroids; Z79.899 Other long term (current) drug therapy

== ENCOUNTER 2019-06-21 14:55 | Emergency (ER) | payer OTHER ==
[2019-06-21] MEDS ORDERED: hydrOXYzine HCL TAB* 25 MG PO ONE (16:52)
--- NOTE | 2019-06-21 17:08 | ED ---
Allergic Reaction/Systemic - HPI Summary HPI Summary: Patient is a 48-year-old female, history of rheumatoid arthritis, here with an allergic reaction. Patient started a rheumatoid arthritis medicine roughly 1 week ago. Patient ended up having an allergic reaction consisting of hives. Patient seen at [facility] on 06/13/2019 and started on a five-day course of prednisone. Patient finished a course on Saturday. During her taking prednisone, patient did feel better but continued to have some hives. Since discontinuing prednisone, patient's hives are worse. Patient continue Benadryl for itching. Patient has no shortness of breath, throat closing, vomiting, diarrhea. Patient's rash is mostly on her upper back, bilateral arms, bilateral thighs. Medications reviewed. Allergies noted and include azithromycin. Home Medications Medication Instructions Recorded Confirmed Type Albuterol HFA INHALER* [Ventolin 1 puff INH Q4H PRN #1 mdi 03/15/17 06/13/19 Rx HFA Inhaler*] FLUoxetine CAP* [Prozac CAP*] 10 mg PO DAILY 08/21/17 06/13/19 History Fluticasone HFA 220 mcg(NF) 1 puff INH BID 06/04/18 06/13/19 History [Flovent HFA 220 Mcg(NF)] Fluconazole 150 MG (NF) [Diflucan 150 mg PO ONCE #2 tab 04/28/19 06/13/19 Rx 150 mg (NF)] Ibuprofen TAB* [Advil TAB*] 600 mg PO Q5H PRN 04/28/19 06/13/19 History Multivitamin [Multivitamins] 1 each PO DAILY 04/28/19 06/13/19 History predniSONE 50 mg TAB [Deltasone 50 50 mg PO DAILY #5 tab 06/13/19 Rx mg TAB] hydrOXYzine pamoate [Vistaril] 25 mg PO Q6HR PRN #30 capsule 06/21/19 Rx predniSONE 10 mg TAB [Deltasone 10 10 mg PO DAILY 16 Days #35 tab 06/21/19 Rx MG TAB*] - History of Current Complaint Chief Complaint: EDAllergicReaction Time Seen by Provider: 06/21/19 16:37 Hx Obtained From: Patient Hx Last Menstrual Period: IUD Onset/Duration: Started days ago, Still Present Severity Currently: None Pain Intensity: 0 Character: Hives Associated Signs And Symptoms: Positive: Rash, Other: - negative SOB, diarrhea. Negative: Throat Tightening, Vomiting - Allergies/Home Medications Allergies/Adverse Reactions: Allergies Allergy/AdvReac Type Severity Reaction Status Date / Time azithromycin Allergy Severe Anaphylatic Verified 06/21/19 15:00 [From Zithromax Z-Rigo] Shock latex Allergy Rash Verified 06/21/19 15:00 Home Medications: Home Medications Albuterol HFA INHALER* [Ventolin HFA Inhaler*] 1 puff INH Q4H PRN #1 mdi [Rx Confirmed 06/13/19] FLUoxetine CAP* [Prozac CAP*] 10 mg PO DAILY 08/21/17 [History Confirmed ] Fluticasone HFA 220 mcg(NF) [Flovent HFA 220 Mcg(NF)] 1 puff INH BID 06/04/18 [ History Confirmed 06/13/19] Fluconazole 150 MG (NF) [Diflucan 150 mg (NF)] 150 mg PO ONCE #2 tab 04/28/19 [ Rx Confirmed 06/13/19] Ibuprofen TAB* [Advil TAB*] 600 mg PO Q5H PRN 04/28/19 [History Confirmed ] Multivitamin [Multivitamins] 1 each PO DAILY 04/28/19 [History Confirmed ] predniSONE 50 mg TAB [Deltasone 50 mg TAB] 50 mg PO DAILY #5 tab 06/13/19 [Rx] hydrOXYzine pamoate [Vistaril] 25 mg PO Q6HR PRN #30 capsule 06/21/19 [Rx] predniSONE 10 mg TAB [Deltasone 10 MG TAB*] 10 mg PO DAILY 16 Days #35 tab 06/20 [Rx] PMH/Surg Hx/FS Hx/Imm Hx Endocrine/Hematology History: Reports: Hx Diabetes - borderline, Hx Anemia - HX OF FOR LAST 4 YEARS BETTER SINCE IUD INSERTION Denies: Hx Thyroid Disease Cardiovascular History: Denies: Hx Hypertension, Hx Pacemaker/ICD Respiratory History: Reports: Hx Asthma - mostly in winter Denies: Hx Chronic Obstructive Pulmonary Disease (COPD) GI History: Reports: Hx Hiatal Hernia Denies: Hx Ulcer History: Reports: Hx Kidney Stones - X 2 LAST ONE 2011 - SHE PASSED Musculoskeletal History: Reports: Hx Arthritis, Other Musculoskeletal History - BEING TESTED FOR RA - LEVELS 30 Sensory History: Reports: Hx Contacts or Glasses - GLASSES Denies: Hx Hearing Aid Opthamlomology History: Reports: Hx Contacts or Glasses - GLASSES Neurological History: Reports: Hx Migraine Psychiatric History: Reports: Hx Anxiety - CLAUSTAPHOBIC, Hx Depression Denies: Hx Panic Disorder - Cancer History Hx Chemotherapy: No Hx Radiation Therapy: No - Surgical History Surgery Procedure, Year, and Place: REPAIR FX LEFT FOOT AUGUST 2012 right knee surgery. [place] [facility] [place] [facility]. 1994 PLACENTA EXTRACTION AFTER CHILDBIRTH[facility] [place] [facility] [place] [facility] [place] KNEE ARTHROSCOPY, [facility] Hx Anesthesia Reactions: No - WOULD PREFER SPINAL ANESTHESIA Infectious Disease History: No Infectious Disease History: Denies: Hx Clostridium Difficile, Hx Hepatitis, Hx Human Immunodeficiency Virus (HIV), Hx of Known/Suspected MRSA, Hx Shingles, Hx Tuberculosis, Hx Known/ Suspected VRE, Hx Known/Suspected VRSA, History Other Infectious Disease, Traveled Outside the [place] in Last 30 Days - Family History Known Family History: Positive: Hypertension Negative: Cardiac Disease, Respiratory Disease - Social History Alcohol Use: Occasionally Substance Use Type: Reports: None Hx Tobacco Use: No Smoking Status (MU): Never Smoked Tobacco Review of Systems Positive: Other - negative throat closing Negative: Shortness Of Breath Negative: Vomiting, Diarrhea Positive: Rash All Other Systems Reviewed And Are Negative: Yes Physical Exam - Summary Physical Exam Summary: Constitutional: Well-developed, Well-nourished, Alert. (-) Distressed Skin: Warm, Dry; Urticaria over bilat arms, thighs, and upper back with surrounding excoriations HENT: Normocephalic; Atraumatic Eyes: Conjunctiva normal Neck: Musculoskeletal ROM normal neck. (-) JVD, (-) Stridor, (-) Tracheal deviation Cardio: Rhythm regular, rate normal, Heart sounds normal; Intact distal pulses; Radial pulses are 2+ and symmetric. (-) Murmur Pulmonary/Chest wall: Effort normal. (-) Respiratory distress, (-) Wheezes, (-) Rales Abd: Soft, (-) tenderness, (-) Distension, (-) Guarding, (-) Rebound Musculoskeletal: (-) Edema Lymph: (-) Cervical adenopathy Neuro: Alert, Oriented x3 Psych: Mood and affect Normal Triage Information Reviewed: Yes Vital Signs On Initial Exam: Initial Vitals Temp Pulse Resp BP Pulse Ox 97 F 87 16 152/86 100 06/21/19 14:57 06/21/19 14:57 06/21/19 14:57 06/21/19 14:57 06/21/19 14:57 Vital Signs Reviewed: Yes Procedures - Sedation Patient Received Moderate/Deep Sedation with Procedure: No Diagnostics - Vital Signs Vital Signs Temp Pulse Resp BP Pulse Ox 06/21/19 14:57 97 F 87 16 152/86 100 - Laboratory Lab Statement: Any lab studies that have been ordered have been reviewed, and results considered in the medical decision making process. Allergic Reaction Course/Dx - Course Course Of Treatment: Patient is here with continuation of hives after starting a new medicine. Patient's symptoms were better on prednisone but worse when she stopped it. Patient has no evidence of anaphylaxis. Patient was switched of Vistaril from Benadryl. A long discussion was had with patient about doing a prolonged course of prednisone and she wanted to do that. Patient is discharged PCP follow-up - Diagnoses Provider Diagnoses: Urticaria Discharge ED - Sign-Out/Discharge Documenting (check all that apply): Patient Departure - dc - Discharge Plan Condition: Stable Disposition: HOME Prescriptions: hydrOXYzine pamoate [Vistaril] 25 mg PO Q6HR PRN #30 capsule PRN Reason: Itching predniSONE 10 mg TAB [Deltasone 10 MG TAB*] 10 mg PO DAILY 16 Days #35 tab Patient Education Materials: Urticaria (ED) Referrals: Yasmeen Dowling MD [Primary Care Provider] - Additional Instructions: PLEASE TAKE YOUR MEDICATIONS PRESCRIBED PLEASE RETURN IF YOU HAVE DIFFICULTY BREATHING, VOMITING, OR ANY OTHER CONCERNING SYMPTOMS PLEASE FOLLOW UP WITH YOUR PRIMARY CARE PHYSICIAN IN 1-3 DAYS - Billing Disposition and Condition Condition: STABLE Disposition: Home - Attestation Statements Document Initiated by Scribe: Yes Documenting Scribe: Bird Higgins Provider For Whom Tano is Documenting (Include Credential): Larry Cabrera MD Scribe Attestation: Bird Grimaldo, scribed for Larry Cabrera MD on 06/21/19 at 1738. Scribe Documentation Reviewed: Yes Provider Attestation: The documentation as recorded by the scribe, Bird Higgins accurately reflects the service I personally performed and the decisions made by me, Larry Cabrera MD Status of Scribe Document: Viewed
[2019-06-21 17:26] VITALS: BP 152/70
== END 2019-06-21 17:24 | disposition home or self-care (01) ==
LOC: ED 14:55
DX: L50.9 Urticaria, unspecified (principal); D64.9 Anemia, unspecified; J45.909 Unspecified asthma, uncomplicated; F41.9 Anxiety disorder, unspecified; F32.9 Major depressive disorder, single episode, unspecified; Z98.51 Tubal ligation status; Z79.899 Other long term (current) drug therapy; Z88.1 Allergy status to other antibiotic agents; Z91.040 Latex allergy status
CPT/HCPCS: 99282; A9270-GY; J7512

== ENCOUNTER 2020-03-13 12:33 | Inpatient (IN) ==
[2020-03-13] MEDS ORDERED: NS 0.9% 1000 ml BAG 1,000 ML IV ONE (12:46)
[2020-03-13] MEDS ORDERED: Famotidine IV 10 MG/ML 2 ml VIAL (20 mg) IV SLOW PU ONE (12:46)
[2020-03-13] MEDS ORDERED: diPHENhydraMINE IV 50 MG/ML 1 ml VIAL (BENADRYL) IV ONE (12:46)
[2020-03-13] MEDS ORDERED: Albuterol HFA INHALER 8 gm MDI INH ONE (12:52)
[2020-03-13] MEDS ORDERED: Albuterol 2.5mg/3 ml (0.083%) NEB.SOLN INH ONE ×2 (12:55→12:57)
[2020-03-13 13:05] LABS: ABS Basophils 0.1 10^3/ul (0-0.2); ABS Monocytes 0.8 10^3/ul (0-0.8); ABS Neutrophils 17.4 10^3/ul (1.5-7.7); Hematocrit 42 % (35-47); Hemoglobin 14.3 g/dL (12.0-16.0); Lymphocyte % 9.9 %; Mean Corpuscular HGB Conc 34 g/dL (31-36); Mean Corpuscular Hemoglobin 29 pg (27-31); Mean Corpuscular Volume 86 fL (80-97); Mean Platelet Volume 8.3 fL (7.4-10.4); Platelet Count 489 10^3/uL (150-450); Red Blood Count 4.88 10^6 /uL (3.70-4.87); Red Cell Distribution Width 14 % (10-15); White Blood Count 20.3 10^3/uL (3.5-10.8)
[2020-03-13 13:12] LABS: INR 1.1 (0.82-1.09)
[2020-03-13 13:22] LABS: Albumin 4.4 g/dL (3.2-5.2); Albumin/Globulin Ratio 1.3 (1-3); BUN/Creatinine Ratio 17.3 (8-20); Calcium 9.7 mg/dL (8.6-10.3); EGFR African American 90.9 (>60); EGFR Non-African American 75.2 (>60); Globulin 3.4 g/dL (2-4); Potassium 3.5 mmol/L (3.5-5.0); Total Bilirubin 0.4 mg/dL (0.2-1.0); Total Protein 7.8 g/dL (6.4-8.9)
[2020-03-13] MEDS ORDERED: EPINEPHrine,Rac 2.25% NEB.SOL 0.5 ML INH ONE (14:04)
[2020-03-13] MEDS ORDERED: Fluticasone HFA 220 mcg(NF) MDI INH PRN (14:34)
[2020-03-13] MEDS: Albuterol/Ipratropium NEB.SOL (2.5/0.5 MG) 3 ML NEB.SOLN INH SCH ×3 (14:51→22:58)
[2020-03-13] MEDS: Enoxaparin 30 MG/0.3 ML SYR SUBCUT SCH (16:35)
[2020-03-13] MEDS: methylPREDNISolone 125 mg 2 ML VIAL IV SCH (16:36)
[2020-03-13] MEDS: Pantoprazole VIAL 40 MG VIAL IV SCH (16:37)
[2020-03-13] MEDS: Mometasone/Formoter 200/5 MDI INH SCH (19:34)
[2020-03-14] MEDS: Albuterol/Ipratropium NEB.SOL (2.5/0.5 MG) 3 ML NEB.SOLN INH SCH ×2 (02:37→07:27)
[2020-03-14] MEDS: methylPREDNISolone 125 mg 2 ML VIAL IV SCH (03:09)
[2020-03-14 04:41] LABS: Hematocrit 36 % (35-47); Hemoglobin 12.2 g/dL (12.0-16.0); Mean Corpuscular HGB Conc 34 g/dL (31-36); Mean Corpuscular Hemoglobin 30 pg (27-31); Mean Corpuscular Volume 87 fL (80-97); Mean Platelet Volume 8.5 fL (7.4-10.4); Platelet Count 289 10^3/uL (150-450); Red Blood Count 4.12 10^6 /uL (3.70-4.87); Red Cell Distribution Width 14 % (10-15); White Blood Count 14.1 10^3/uL (3.5-10.8)
[2020-03-14 04:59] LABS: BUN/Creatinine Ratio 21.1 (8-20); Calcium 8.5 mg/dL (8.6-10.3); EGFR African American 97.9 (>60); EGFR Non-African American 80.9 (>60); Magnesium 2.1 mg/dL (1.9-2.7); Phosphorus 2.6 mg/dL (2.5-5.0); Potassium 4.2 mmol/L (3.5-5.0)
[2020-03-14] MEDS: Mometasone/Formoter 200/5 MDI INH SCH ×2 (07:31→20:24)
[2020-03-14] MEDS: Vitamin THERAPEUTIC TAB PO SCH (08:27)
[2020-03-14] MEDS: Pantoprazole VIAL 40 MG VIAL IV SCH (08:28)
[2020-03-14] MEDS ORDERED: diPHENhydraMINE IV 50 MG/ML 1 ml VIAL (BENADRYL) IV ONE (12:32)
[2020-03-14] MEDS ORDERED: Ondansetron 4 mg VIAL 2 MG/ML 2 ml VIAL ONE (12:50)
[2020-03-14] MEDS: Enoxaparin 30 MG/0.3 ML SYR SUBCUT SCH (13:50)
[2020-03-15] MEDS: Vitamin THERAPEUTIC TAB PO SCH (07:23)
[2020-03-15] MEDS: Mometasone/Formoter 200/5 MDI INH SCH (08:36)
[2020-03-15 12:13] VITALS: BP 147/68
== END 2020-03-15 12:45 | disposition home or self-care (01) | DRG 916 ==
LOC: ED 12:33 → ICU 14:50 → MEDTELE 03-14 11:44
PROVIDERS: ADMIT Internal Medicine; ATTEND Internal Medicine

== ENCOUNTER 2023-10-26 07:04 | Observation (INO) ==
[2023-10-26] MEDS: Ondansetron 4 mg VIAL 2 MG/ML 2 ml VIAL IV ONE ×2 (08:12→11:17)
[2023-10-26] MEDS: Morphine 4 MG/ML VIAL (1 ml) IV ONE (08:16)
[2023-10-26] MEDS: Lactated Ringers 1000 ml BAG 1,000 ML IV ONE (08:19)
[2023-10-26 08:24] LABS: ABS Basophils 0.1 10^3/uL (0.0-0.1); ABS Eosinophils 0.1 10^3/uL (0.0-0.5); ABS Lymphocytes 2.1 10^3/uL (1.0-4.8); ABS Monocytes 0.8 10^3/uL (0.0-0.9); ABS Neutrophils 7.3 10^3/uL (1.5-7.6); ABS Nucleated RBC 0.02 10^3/ul; Eosinophil % 1.3 %; Hematocrit 43.5 % (35-45); Hemoglobin 14.7 g/dL (11.5-14.3); Lymphocyte % 19.8 %; Mean Corpuscular Hemoglobin 30.6 pg (27-33); Mean Corpuscular Hgb Conc 33.9 g/dL (31-36); Mean Corpuscular Volume 90.3 fL (80-97); Mean Platelet Volume 7.9 fL (7.5-11.2); Nucleated Red Blood Cells % 0.2 %/100WBC (0.0-0.8); Platelet Count 327 10^3/uL (150-450); Red Blood Count 4.82 10^6/uL (3.63-4.92); Red Cell Distribution Width 15.7 % (12-17); White Blood Count 10.4 10^3/uL (3.8-11.8)
[2023-10-26] MEDS: HYDROmorphone 1 MG/1 ML SYRINGE IV ONE (10:05)
[2023-10-26 10:59] LABS: ALT 40 U/L (7-52); Albumin 3.4 g/dL (3.2-5.2); Albumin/Globulin Ratio 1.3 (1-3); Alkaline Phosphatase 53 U/L (35-149); Anion Gap 12 mmol/L (2-16); Blood Urea Nitrogen 12 mg/dL (6-24); CO2 Carbon Dioxide 18 mmol/L (22-32); Calcium 8.1 mg/dL (8.6-10.3); Chloride 106 mmol/L (101-111); Creatinine, Serum 0.66 mg/dL (0.51-0.95); Globulin 2.7 g/dL (2-4); Glucose 90 mg/dL (70-100); Sodium 136 mmol/L (135-145); Total Bilirubin 0.7 mg/dL (0.2-1.0); Total Protein 6.1 g/dL (6.4-8.9); eGFR CKD-EPI 104.8 (>60)
[2023-10-26] MEDS: NS 0.9% 1000 ml BAG 1,000 ML IV SCH (12:46)
[2023-10-26 12:56] LABS: Urine Appearance Turbid; Urine Bilirubin Negative (Negative); Urine Blood 3+ (Negative); Urine Color Yellow; Urine Glucose Negative (Negative); Urine Ketones Negative (Negative); Urine Nitrite Negative (Negative); Urine Protein 1+ (>=30 mg/dL) (Negative); Urine Specific Gravity 1.024 (1.002-1.030); Urine Urobilinogen Negative (Negative)
[2023-10-26 13:36] LABS: Potassium Redraw 3.9 mmol/L (3.5-5.0)
[2023-10-26 13:46] LABS: Urine Bacteria Absent /HPF (Absent); Urine Red Blood Cell 3+(>10/hpf) /HPF (0-Trace); Urine Squamous Epithelial Cell Present /HPF (Absent); Urine White Blood Cell 2+(11-20/hpf) /HPF (0-Trace)
[2023-10-26] MEDS ORDERED: Albuterol HFA INHALER 8 gm MDI INH PRN (16:13)
[2023-10-26] MEDS: Ondansetron 4 mg VIAL 2 MG/ML 2 ml VIAL IV PRN (16:26)
[2023-10-26 16:44] LABS: Uric Acid 5.5 mg/dL (2.3-6.6)
[2023-10-26] MEDS: Prochlorperazine 5 mg/ml 2 ml VIAL (10 mg) IV PRN (19:04)
[2023-10-26] MEDS: HYDROmorphone 1 MG/1 ML SYRINGE IV PRN (19:04)
[2023-10-26] MEDS: Mometasone/Formoter 200/5 MDI INH SCH (19:47)
[2023-10-27] MEDS: cefTRIAXone 1 gm/50 mL D5W 1 GM/50 ML BAG IV ONE (07:35)
[2023-10-27] MEDS ORDERED: Iohexol 180 (CONTRAST) 10 ML SDV IV ONE (07:46)
[2023-10-27] MEDS ORDERED: fentaNYL 100 mcg/2 ml 50 MCG/ML VIAL ONE (07:52)
[2023-10-27] MEDS ORDERED: Midazolam 2 mg/2 ml VIAL 1 mg/ml 2 ml VIAL (2 mg) ONE (07:52)
[2023-10-27] MEDS ORDERED: Lidocaine 2% PF 5 ML VIAL ONE (07:52)
[2023-10-27] MEDS ORDERED: HYDROcodone/ACETAMIN 5/325 mg TAB PO PRN (08:07)
[2023-10-27] MEDS ORDERED: Ondansetron 4 mg VIAL 2 MG/ML 2 ml VIAL IV PRN (08:07)
[2023-10-27] MEDS ORDERED: fentaNYL 100 mcg/2 ml 50 MCG/ML VIAL IV PRN (08:07)
[2023-10-27] MEDS ORDERED: Naloxone 0.4 mg VIAL 0.4 mg/ml 1 ml VIAL IV PRN (08:07)
[2023-10-27] MEDS ORDERED: Famotidine IV 10 MG/ML 2 ml VIAL (20 mg) ONE (08:18)
[2023-10-27] MEDS ORDERED: Dexamethasone IV 4 MG/ML VIAL 1 ml VIAL ONE (08:29)
[2023-10-27] MEDS ORDERED: Propofol 10 MG/ML 20 ML BTL ONE (08:29)
[2023-10-27] MEDS ORDERED: Ondansetron 4 mg VIAL 2 MG/ML 2 ml VIAL ONE (08:29)
[2023-10-27 09:48] VITALS: BP 149/80
== END 2023-10-27 10:30 | disposition home or self-care (01) ==
LOC: ED 07:04 → EDHOLD 07:04 → SSU 15:19
PROVIDERS: ADMIT Hospitalist; ATTEND Hospitalist